=== PATIENT | male | born 1975 | race Caucasian/White ===

== ENCOUNTER 2021-02-28 01:51 | Inpatient (IN) | payer SELFPAY ==
[~2021-02-28] VITALS: Ht 182.9 cm; Wt 150.6 kg
[2021-02-28 02:05] LABS: Calcium, Ionized (POC) 1.05 mmol/L (1.10-1.46); Chloride (POC) 98 mmol/L (98-108); Creatinine (POC) 2.9 mg/dL (0.8-1.3); Glucose (ISTAT POC) 179 mg/dL (70-99); Hemoglobin (POC) 9.9 g/dL (13.5-17.5); Potassium (POC) 4.2 mmol/L (3.5-5.5); Sodium (POC) 134 mmol/L (135-148); Total CO2 (POC) 15 mmol/L (21-32)
[2021-02-28 02:11] LABS: PCO2 Arterial 38.3 mmHg (35-45); PO2 Arterial 44.4 mmHg (80-100); pH Blood Arterial 7.01 (7.35-7.45)
[2021-02-28 02:30] LABS: BASOPHILS ABSOLUTE AUTO 0.04 K/mm3 (0.00-0.23); BASOPHILS PERCENT AUTO 0 % (0-2); Hemoglobin 9.8 g/dL (13.5-17.5); Mean Corpuscular HGB 30.3 pg (26.0-34.0); Mean Corpuscular HGB Conc 31.6 g/dL (31.5-36.5); Mean Corpuscular Volume 96 fL (80-100); Mean Platelet Volume 11.7 fL (9.1-12.4); NRBC Auto 0.6 /100 WBC (0.0-0.2); Platelet Count 154 K/mm3 (150-400); RDW Standard Deviation 59.8 fL (35.1-46.3); Red Blood Cell Count 3.23 M/mm3 (4.30-5.90); White Blood Cell Count 15.45 K/mm3 (4.00-11.30)
[2021-02-28 02:32] LABS: EOSINOPHILS ABSOLUTE AUTO 0.01 K/mm3 (0.00-0.68); EOSINOPHILS PERCENT AUTO 0 % (0-6); IMMATURE GRAN ABSOLUTE AUTO 0.87 K/mm3 (0.00-0.10); IMMATURE GRAN PERCENT AUTO 6 % (0-1); LYMPHOCYTES ABSOLUTE AUTO 2.24 K/mm3 (0.84-5.20); LYMPHOCYTES PERCENT AUTO 15 % (21-46); MONOCYTES ABSOLUTE AUTO 0.18 K/mm3 (0.16-1.47); MONOCYTES PERCENT AUTO 1 % (4-13); NEUTROPHILS ABSOLUTE AUTO 12.11 K/mm3 (1.96-9.15); NEUTROPHILS PERCENT AUTO 78 % (41-73)
[2021-02-28 02:56] LABS: Bilirubin, Total 0.7 mg/dL (0.1-1.0); Bun/Creatinine Ratio 10.4 (12.0-20.0); Creatinine, Blood 2.5 mg/dL (0.60-1.20); Magnesium, Blood 2.6 mg/dL (1.6-2.4)
[2021-02-28 03:02] LABS: Troponin I 8.23 ng/mL (0.000-0.040)
[2021-02-28 03:04] LABS: BAND PERCENT MAN 19 % (0-8); BASOPHILS PERCENT MAN 0 % (0-2); EOSINOPHILS PERCENT MAN 0 % (0-6); LYMPHOCYTES ABSOLUTE MAN 1.85 K/mm3 (0.84-5.20); LYMPHOCYTES PERCENT MAN 12 % (21-46); METAMYELOCYTE ABSOLUTE MAN 0.77 K/mm3 (0.00-0.00); METAMYELOCYTE PERCENT MAN 5 % (0-0); MONOCYTES ABSOLUTE MAN 0.15 K/mm3 (0.16-1.47); MONOCYTES PERCENT MAN 1 % (4-13); MYELOCYTE ABSOLUTE MAN 0.15 K/mm3 (0.00-0.00); MYELOCYTE PERCENT MAN 1 % (0-0); NEUTROPHILS ABSOLUTE MAN 12.36 K/mm3 (1.96-9.15); PROMYELOCYTE ABSOLUTE MAN 0.15 K/mm3 (0.00-0.00); PROMYELOCYTE PERCENT MAN 1 % (0-0); SEG NEUTROPHILS PERCENT MAN 61 % (41-73); TOTAL CELLS COUNTED 100
[2021-02-28 03:59] LABS: PCO2 Arterial 51.9 mmHg (35-45); pH Blood Arterial 7.12 (7.35-7.45)
[2021-02-28 04:00] LABS: PO2 Arterial 47.4 mmHg (80-100)
[2021-02-28 04:00] LABS: Calcium, Ionized (POC) 1.03 mmol/L (1.10-1.46); Chloride (POC) 101 mmol/L (98-108); Creatinine (POC) 2.5 mg/dL (0.8-1.3); Glucose (ISTAT POC) 131 mg/dL (70-99); Hemoglobin (POC) 9.5 g/dL (13.5-17.5); Potassium (POC) 4.8 mmol/L (3.5-5.5); Sodium (POC) 132 mmol/L (135-148); Total CO2 (POC) 18 mmol/L (21-32)
[2021-02-28 05:20] LABS: PCO2 Arterial 53.9 mmHg (35-45)
[2021-02-28 05:22] LABS: PO2 Arterial 32.3 mmHg (80-100); pH Blood Arterial 7.08 (7.35-7.45)
[2021-02-28 06:33] LABS: International Normalized Ratio 1.06; Prothrombin Time Results 11.4 Sec (9.7-11.5)
--- NOTE | 2021-02-28 08:14 | NUR ---
Echocardiogram completed.
[2021-02-28 10:10] LABS: PCO2 Arterial 39.3 mmHg (35-45); PO2 Arterial 50.2 mmHg (80-100); pH Blood Arterial 7.24 (7.35-7.45)
[2021-02-28 10:36] LABS: Hematocrit 25.2 % (37.0-53.0); Hemoglobin 8.7 g/dL (13.5-17.5); Mean Corpuscular HGB Conc 34.5 g/dL (31.5-36.5); Mean Platelet Volume 10.7 fL (9.1-12.4); NRBC ABSOLUTE 0.13 K/mm3 (0.00-0.02); NRBC Auto 0.8 /100 WBC (0.0-0.2); Platelet Count 185 K/mm3 (150-400); RDW Coefficient Variation 16.4 % (11.7-14.2); RDW Standard Deviation 54.7 fL (35.1-46.3); Red Blood Cell Count 2.81 M/mm3 (4.30-5.90); White Blood Cell Count 16.11 K/mm3 (4.00-11.30)
[2021-02-28 10:37] LABS: Mean Corpuscular Volume 90 fL (80-100)
[2021-02-28 10:58] LABS: Bun/Creatinine Ratio 12.7 (12.0-20.0); Calcium, Blood 6.8 mg/dL (8.5-10.1); Creatine Kinase MB 228.8 ng/mL (0.0-3.6); Creatinine, Blood 2.13 mg/dL (0.60-1.20); Potassium, Blood 3.2 mmol/L (3.5-5.5)
[2021-02-28 11:05] LABS: BAND PERCENT MAN 18 % (0-8); BASOPHILS PERCENT MAN 0 % (0-2); EOSINOPHILS PERCENT MAN 0 % (0-6); LYMPHOCYTES ABSOLUTE MAN 2.09 K/mm3 (0.84-5.20); LYMPHOCYTES PERCENT MAN 13 % (21-46); METAMYELOCYTE ABSOLUTE MAN 0.48 K/mm3 (0.00-0.00); METAMYELOCYTE PERCENT MAN 3 % (0-0); MONOCYTES PERCENT MAN 0 % (4-13); MYELOCYTE ABSOLUTE MAN 0.16 K/mm3 (0.00-0.00); MYELOCYTE PERCENT MAN 1 % (0-0); NEUTROPHILS ABSOLUTE MAN 13.37 K/mm3 (1.96-9.15); SEG NEUTROPHILS PERCENT MAN 65 % (41-73); TOTAL CELLS COUNTED 100
[2021-02-28 11:06] LABS: Creatine Kinase MB Index 6.6 (0.0-4.0)
[2021-02-28 11:30] LABS: International Normalized Ratio 1.06; Prothrombin Time Results 11.4 Sec (9.7-11.5)
[2021-02-28 11:54] LABS: PCO2 Arterial 32.9 mmHg (35-45); PO2 Arterial 46.3 mmHg (80-100); pH Blood Arterial 7.24 (7.35-7.45)
--- NOTE | 2021-02-28 11:57 | NUR ---
Admission/Transfer to : Patient arrived to room at approx 0815hr, accompanied by ED nurse and RT Corby. Vent to Bilevel ventilation on 100% FiO2, spO2 in the 70's. Levophed gtt at 10mcg/min, Vasopressin at 0.04u/min and Epi gtt placed on stand-by before transport to ICU, Propofol gtt at 15mcg/kg/min, Heparin gtt at 15u/kg/hr, verified with 2nd RN via EMAR. NIBP show systolics in the 130's. Dr. Shahid to room shortly after patient transferred to ICU bed. Instructed by Dr. Shahid to prone patient. Patient placed in prone position with help from Dr. Shahid, RT, and x3 RN's. Patient place prone without difficulty and continued to tolerate vent, but spO2 quickly decreased to the 50's-60's. Dr. Shahid then instructed staff to place patient back to supine position. Patient then placed back to supine position without difficulty, spO2 improved to 70's, but will not increase above 78% (Dr. Shahid aware). Dr. Shahid then placed arterial line to rt axilla. Arterial line zero'd at bedside, adequate waveform on monitor, systolic's 115-130's. Instructed by Dr. Shahid to turn Epi gtt back on at 5mc/gmin and titrate levophed off before coming down on Epi gtt. Dr. De León then to room to see patient (cardiology). Received order for repeat 12lead EKG, which showed concern for anterior-lateral infarct. STEMI team activated. 324 ASA and 180mg of Brilinta given via OG tube per Dr. De León. PTT results received before transfer to , showing greater than 130. Heparin gtt stopped at 1120hr, and pharmacist Salvador notified of PTT value and that patient was transferring to . Epi gtt remains at 5mcg/min, Levophed gtt titrated down to 3mcg/min. Critical ABG results shown to Dr. Shahid. Transferred to without difficulty at 1130hr.
--- NOTE | 2021-02-28 12:13 | NUR ---
Family: equal employment opportunity officer Chaya contacted family shortly after patient's arrival and again when Dr. De León gave plan to take patient to HC. Patient's parents both able to come to bedside before transferr HC. All questions anxwerred to their satisfaction. Family escorted to HC waiting room.
[2021-02-28 13:30] LABS: PCO2 Arterial 36.4 mmHg (35-45); PO2 Arterial 56.7 mmHg (80-100); pH Blood Arterial 7.22 (7.35-7.45)
[2021-02-28 13:59] LABS: Hematocrit 22.6 % (37.0-53.0); Hemoglobin 8.1 g/dL (13.5-17.5); Mean Corpuscular HGB 31.9 pg (26.0-34.0); Mean Corpuscular HGB Conc 35.8 g/dL (31.5-36.5); Mean Corpuscular Volume 89 fL (80-100); Mean Platelet Volume 10.5 fL (9.1-12.4); NRBC ABSOLUTE 0.14 K/mm3 (0.00-0.02); NRBC Auto 0.9 /100 WBC (0.0-0.2); Platelet Count 176 K/mm3 (150-400); RDW Coefficient Variation 16.3 % (11.7-14.2); RDW Standard Deviation 53.7 fL (35.1-46.3); Red Blood Cell Count 2.54 M/mm3 (4.30-5.90); White Blood Cell Count 15.36 K/mm3 (4.00-11.30)
--- NOTE | 2021-02-28 14:20 | NUR ---
Return from HC: Patient returned from HC at approx 1330hr, accompanied by RT and HC staff. Patient returned with no change to vasopressors, Levophed gtt at 3mcg/min, Epi gtt at 5mcg/min. BP stable with systolic BP's in low 100's, MAPs 60's-70s. Propofol gtt increased from 20-30mcg/kg/min shortly after arrival to HC by this RN, and returned to unit at same rate. Patient appears sedated and comfortable. Spoke with Dr. Shahid, instructed no need to decrease sedation at this time. Continues on Vent at Bilevel setting with 100% FiO2, spO2 now 83-85%. Returned on Agrostat 12.5mg in 250ml gtt, at 11.2ml/hr. Agrostat dose renal adjusted by pharmacy and rate now at 11.6ml/hr. Received instructions per Dr. De León to continue Agrostat gtt until 250ml bag is finished, then return to Heparin gtt per pharmacy consult. Venous and arterial sheaths in place to rt groin upon return from HC. Rt groin site stable, no s/s of bleeding or hematoma. Pressure bag infusing through arterial sheath, Agrostat gtt infusing through venous sheath. Patient's family brought to bedside upon return from HC, all questions answered to their satisfaction. Will continue to monitor.
[2021-02-28 14:34] LABS: Bun/Creatinine Ratio 12.1 (12.0-20.0); Calcium, Blood 6.4 mg/dL (8.5-10.1); Creatinine, Blood 2.14 mg/dL (0.60-1.20)
[2021-02-28 15:13] LABS: BAND PERCENT MAN 18 % (0-8); BASOPHILS PERCENT MAN 0 % (0-2); EOSINOPHILS PERCENT MAN 0 % (0-6); LYMPHOCYTES ABSOLUTE MAN 2.76 K/mm3 (0.84-5.20); LYMPHOCYTES PERCENT MAN 18 % (21-46); METAMYELOCYTE PERCENT MAN 2 % (0-0); MONOCYTES PERCENT MAN 0 % (4-13); NEUTROPHILS ABSOLUTE MAN 12.28 K/mm3 (1.96-9.15); SEG NEUTROPHILS PERCENT MAN 62 % (41-73); TOTAL CELLS COUNTED 100
[2021-02-28 15:14] LABS: Creatine Kinase MB 270.8 ng/mL (0.0-3.6); Creatine Kinase MB Index 6.5 (0.0-4.0)
[2021-02-28 15:30] LABS: PCO2 Arterial 36.5 mmHg (35-45); PO2 Arterial 51.2 mmHg (80-100); pH Blood Arterial 7.21 (7.35-7.45)
[2021-02-28 16:37] LABS: PCO2 Arterial 44.2 mmHg (35-45); PO2 Arterial 52.4 mmHg (80-100)
[2021-02-28 16:38] LABS: pH Blood Arterial 7.18 (7.35-7.45)
[2021-02-28 18:23] LABS: SARS-Cov-2 (COVID-19) PCR, MMC POSITIVE (NEGATIVE)
[2021-02-28 18:36] LABS: PCO2 Arterial 37.1 mmHg (35-45); PO2 Arterial 67.3 mmHg (80-100)
[2021-02-28 18:37] LABS: pH Blood Arterial 7.27 (7.35-7.45)
--- NOTE | 2021-02-28 19:26 | NUR ---
Shift Summary: See previous notes r/t transfer to cathode maker and admission to ICU. ABG's continued to worsen in pH and PO2. SpO2 also remained in mid 80's. Consulted with Dr. Shahid and received order to start Nimbex gtt. Unable to monitor BIS r/t lack of supplies but patient appeared well sedated on 30mcg/kg/min of propofol. Nimbex gtt started at 2mcg/kg/min. Unable to obtain baseline TOF, but nimbex effective to decrease respiratory rate from low 30's to back-up rate of 28. SpO2 remained in the mid 80's, occasional decreasing to high 70's. Then discussed plan with Dr. Shahid an RT Prasanth. Prasanth received instructions to trial different modes of ventilation in order to increase SpO2. RT Prasanth then adjusted vent settings. Vent remains at BiLevel mode but I/E pressures decreased and inspiratory time increased. These changes effective to increase patient's spO2, 93-95% for remainder of shift. Repeat ABG also showed improvement. Also received orders for repeat lactic and chem panel per Dr. Shahid. All lines remain patent and intact, infusing without difficulty. Alatorre cath patent and intact, draining dark yellow urine, 2L output this shift. OG put to low suction, moderate amount of coffee ground emesis noted, Dr. Shahid made aware, no new orders received. Report given to NOC shift RN.
--- NOTE | 2021-02-28 21:28 | NUR ---
PATIENT INTUBATED AND SEDATED WITH PROPOFOL 40 MCG AND NIMBEX AT 2 MCG FOR VENT TOLERANCE. ETT IN PLACE WITH VENT SET BILEVEL RESP 28, 30/18 WITH PS 15 FIO2 100% LUNG SOUNDS COARSE T/O NOT ABLE TO SUCTION SECRETIONS VIA ETT. BLOODY NOSE PACKED WITH TISSUE. OG TO SUCTION WITH DARK COFFEE GROUND LOOKING EMESIS, CLAMPED AT THIS TIME FOR MEDICATIONS. ART LINE TO RIGHT AXILLA WITH GOOD WAVEFORM, EPINEPHERINE DRIP 5 MCG CONTINUES FOR HYPOTENSION. AGGRASTAT CONTINUES PER DOCTOR MADONNA, PLAN TO START HEPARIN DRIP WHEN THIS BAG IS COMPLETE. LASIX DRIP STARTED TO KEEP URINE OUTPUT GREATER THAN 150 CC/HR. POTASSIUM RIDER INFUSING. TIFFANY AND ARTERIAL SHEATH REMAIN IN PLACE TO RIGHT GROIN WITH PRESSURE BAG TO ARTERIAL SHEATH AND AGGRASTAT TO TIFFANY SHEATH.
[2021-02-28 22:10] LABS: PCO2 Arterial 32.7 mmHg (35-45); PO2 Arterial 91.7 mmHg (80-100); pH Blood Arterial 7.32 (7.35-7.45)
[2021-02-28 23:01] LABS: Albumin, Blood 2.7 g/dL (3.4-5.0); Anion Gap 15 mmol/L (6-16); Blood Urea Nitrogen 24 mg/dL (8-24); Bun/Creatinine Ratio 10.7 (12.0-20.0); CO2, Blood 19 mmol/L (21-32); CPK Creatine Kinase 4771 U/L (39-308); Calcium, Blood 5.9 mg/dL (8.5-10.1); Chloride, Blood 94 mmol/L (98-108); Creatinine, Blood 2.25 mg/dL (0.60-1.20); Glomerular Filtration Rate 32 (60-); Glucose, Blood 363 mg/dL (70-99); Phosphorus, Blood 1.6 mg/dL (2.5-4.9); Sodium, Blood 128 mmol/L (136-145); Troponin I >200.000 ng/mL (0.000-0.040)
--- NOTE | 2021-02-28 23:13 | NUR ---
DOCTOR SCOTT NOTIFIED OF REPEAT LABS, KEEP VENT SETTINGS THEY ARE. RESTART LEVOPHED, KEEP EPI 3-4 MCG, CONTINUE LASIX DRIP. KPHOS AND CALCIUM IV ORDERED
[2021-03-01 02:07] LABS: PCO2 Arterial 30.1 mmHg (35-45); PO2 Arterial 73.3 mmHg (80-100); pH Blood Arterial 7.42 (7.35-7.45)
[2021-03-01 05:13] LABS: PCO2 Arterial 28.5 mmHg (35-45)
--- NOTE | 2021-03-01 06:23 | NUR ---
SUMMARY PATIENT REMAINS INTUBATED AND SEDATED. PROPOFOL 40 MCG FOR SEDATION AND NIMBEX 2MCG TO HELP PATIENT QUINTIN VENT. VENT SET BILEVEL 30/18 PS 15 FIO2 90% SEE ABG'S ART LINE TO RIGHT AXILLA WITH GOOD WAVEFORM DRAWING LABS VIA SAFESET. CENTRAL LINE TO LEFT GROIN AND ARTERIAL AND VENOUS SHEATHS TO RIGHT GROIN WITH AGGRASTAT INFUSING TO TIFFANY SHEATH. LEVOPHED 5 MCG AND EPI 3 MCG FOR HYPOTENSION. BICARB DRIP CONTINUES AT 75 CC/HR. LASIX DRIP 5 MG/HR WITH GOOD URINE OUT SEE I&O. OG REMAINS IN PLACE WITH DARK COFFEE GROUNDS LOOKING BILE, CLAMPED 45 MIN AFTER MEDS.
[2021-03-01 06:24] LABS: Hemoglobin 6.3 g/dL (13.5-17.5); Mean Corpuscular HGB Conc 37.1 g/dL (31.5-36.5); NRBC ABSOLUTE 0.23 K/mm3 (0.00-0.02); NRBC Auto 2.4 /100 WBC (0.0-0.2); RDW Coefficient Variation 15.2 % (11.7-14.2); RDW Standard Deviation 46.5 fL (35.1-46.3); Red Blood Cell Count 2.03 M/mm3 (4.30-5.90); White Blood Cell Count 9.41 K/mm3 (4.00-11.30)
[2021-03-01 06:31] LABS: Magnesium, Blood 1.8 mg/dL (1.6-2.4)
[2021-03-01 06:33] LABS: Albumin, Blood 2.7 g/dL (3.4-5.0); Bilirubin, Total 0.6 mg/dL (0.1-1.0); Bun/Creatinine Ratio 11.7 (12.0-20.0); Calcium, Blood 6.4 mg/dL (8.5-10.1); Creatinine, Blood 2.3 mg/dL (0.60-1.20); Phosphorus, Blood 2.7 mg/dL (2.5-4.9); Potassium, Blood 3.2 mmol/L (3.5-5.5)
[2021-03-01 06:38] LABS: Mean Corpuscular Volume 84 fL (80-100); Mean Platelet Volume 10.5 fL (9.1-12.4); Platelet Count 168 K/mm3 (150-400)
[2021-03-01 06:52] LABS: Albumin/Globulin Ratio 0.9 (0.8-1.8); Total Protein, Blood 5.7 g/dL (6.4-8.2)
[2021-03-01 07:40] LABS: BAND PERCENT MAN 19 % (0-8); BASOPHILS PERCENT MAN 0 % (0-2); EOSINOPHILS PERCENT MAN 0 % (0-6); LYMPHOCYTES ABSOLUTE MAN 0.94 K/mm3 (0.84-5.20); LYMPHOCYTES PERCENT MAN 10 % (21-46); METAMYELOCYTE ABSOLUTE MAN 0.18 K/mm3 (0.00-0.00); METAMYELOCYTE PERCENT MAN 2 % (0-0); MONOCYTES ABSOLUTE MAN 0.28 K/mm3 (0.16-1.47); MONOCYTES PERCENT MAN 3 % (4-13); NEUTROPHILS ABSOLUTE MAN 7.99 K/mm3 (1.96-9.15); SEG NEUTROPHILS PERCENT MAN 66 % (41-73); TOTAL CELLS COUNTED 100
[2021-03-01 07:41] LABS: Creatine Kinase MB 312.9 ng/mL (0.0-3.6)
--- NOTE | 2021-03-01 08:45 | NUR ---
ASSUMED CARE REPORT FROM ASHLEIGH [facility]. PT INTUBATED, SEDATED AND PARALYZED. VENT SETTINGS WINSTON/PC 28/30/18/PS15/70%. LUNGS CLEAR. NO SECRETIONS THROUGH ETT AT THIS TIME. NIMBEX GTT, TO4 0/4, PT COMPLIANT c VENT, NO COUGH/GAG/SWALLOW REFLEX. WILL TITRATE NIMBEX DOWN. PROPOFOL GTT, BIS MONITOR SET UP, 30-40'S, WILL TITRATE PROPOFOL DOWN. PUPILS 4 MM, REACTIVE. PT PALE, COOL. CAP REFILL > 4 SEC. PULSES BY DOPPLER. SR, RATE 90'S, ST ELEVATION. LEVO GTT AND EPI GTT INFUSING. PER DR CHAVEZ NOTE, WILL CONTINUE EPI AT 3 MCG/MIN. LEVO TITRATED FOR MAP>65. ART LINE TO RIGHT AXILLA, ZERO'D AND FLUSHED. DRESSING C/D/I. CVC TO LEFT GROIN, INFUSING, DRESSING C/D/I. ARTERIAL AND VENOUS SHEATH TO RIGHT GROIN, ART SHEATH c PRESSURE BAG IN PLACE. AGGRASTAT INFUSING THROUGH VENOUS SHEATH AT SHIFT CHANGE, INFUSION COMPLETE. CHANGED TO HEPARIN 13 UNITS/KG/HR. VERIFIED c PHARMACY THAT COAGS DID NOT NEED TO BE DRAWN PRIOR TO STARTING HEPARIN. OGT TO LIS AT SHIFT CHANGE, MAROON EMESIS OUT, CLAMPED AND MEDS GIVEN. ABD ROUND, SOFT, HYPOACTIVE BT. COREA PATENT, DRAINING CLEAR YELLOW URINE TO GRAVITY. LASIX GTT FOR OU>150ML/HR, WILL TITRATE DOWN. 1 UNIT PRBCS STARTED. BICARB AT 75 ML/HR. 1+ EDEMA TO BLE. WILL CONTINUE TO MONITOR.
--- NOTE | 2021-03-01 12:40 | NUR ---
SEDATION/PARALYTIC VACATION PROPOFOL AND NIMBEX PLACED ON STANDBY. AFTER 7 MINUTES, PT COUGHING, ASYNCHRONOUS c VENT, O2 SATS DECREASED TO 83%. PT NOT FOLLOWING COMMANDS. RESTARTED NIMBEX AND PROPOFOL.
[2021-03-01 13:57] LABS: Hematocrit 21.4 % (37.0-53.0); Hemoglobin 8.9 g/dL (13.5-17.5)
--- NOTE | 2021-03-01 16:29 | NUR ---
SHEATH PULL/HEPARIN ADJUSTMENT VENOUS AND ARTERIAL SHEATH PULLED. WHEN PT WAS SUPINE, O2 SATS DECREASED TO 60'S, HR AND BP INCREASED. DIFFICULTIES ACHIEVING HEMOSTASIS, CONTINUED TO HOLD PRESSURE. PROOFING MACHINE OPERATOR STAFF AND DR PEACOCK NOTIFIED AND AT BEDSIDE. PRESSURE HELD FOR 25 MINUTES. GROIN SOFT, NO HEMATOMA PALPABLE. PETROLEUM c OPSITE PLACED. WILL CONTINUE TO MONITOR CLOSELY. PHARMACY CALLED c HEPARIN RATE INCREASE TO 15 UNITS/KG/HR AND 5000 UNIT BOLUS. DISCUSSED c KATERINA PHARMACIST AND RYAN. RATE INCREASED TO 15, BOLUS HELD. WILL RECHECK PTT PRIOR TO PREVIOUSLY SCHEDULED.
--- NOTE | 2021-03-01 17:09 | NUR ---
SHIFT SUMMARY PT REMAINS INTUBATED AND SEDATED. VENT SETTINGS BILEVEL 28/18/15/70%. LUNGS COARSE, DIM IN BASES. SCANT SECRETIONS THROUGH ETT. PT PARALYZED AND SEDATED. SEE SEDATION VACATION NOTE, PROPOFOL GTT 25 MCG/KG/MIN, BIS 30-40'S. NIMBEX 2 MCG/KG/MIN, TO4 0/4, ALTHOUGH TITRATED UP D/T PT MOVEMENT AND NON COMPLIANCE c VENT. ART LINE TO RIGHT AXILLA. LEVO GTT FOR MAP>65, EPI GTT D/C'D. PT CONTINUES TO BE PALE, COOL. DELAYED CAP REFILL. TRANSFUSED 2 UNITS PRBCS THIS SHIFT. LASIX GTT D/C'D. COREA PATENT, DRAINING CLEAR YELLOW URINE TO GRAVITY. ARTERIAL AND VENOUS SHEATH REMOVED, SEE NOTE. SITE CURRENTLY SOFT, NO BRUISING OR HEMATOMA NOTED. 350 ML OF MAROON EMESIS OUT THIS SHIFT, TUBE FEEDS STARTED AT 25 ML/HR c 30 ML FLUSH q4 HR. FAMILY UPDATED. WILL CONTINUE TO MONITOR UNTIL REPORT TO ONCOMING NURSE.
--- NOTE | 2021-03-01 20:45 | NUR ---
PATIENT REMAINS INTUBATED AND SEDATED WITH PROPOFOL 25 MCG, NIMBEX 2 MCG TO HELP PATIENT QUINTIN VENT. BIS 40'S UP TO 50'S WITH SLIGHT STIMULI. UNABLE TO OBTAIN TRAIN OF 4. VENT BILEVEL RESP 28 28/18 PEEP 15 FIO2 70% SUCTIONING SCANT AMT OF BLOOD TINGED CLEAR SPUTUM. ART LINE TO RIGHT AXILLA ZEROED, GOOD WAVEFORM BP VERY LABILE, INCREASING WITH SLIGHT STIMULI. LEVOPHED 12 MCG. HEPARIN 15 UNITS PER PHARMACY. RIGHT GROIN SHEATH SITE WITH DRESSING CD&I AND AREA AROUND SITE SOFT. OG IN PLACE WITH TUBE FEEDING VITAL HP AT 25 CC/HR.
--- NOTE | 2021-03-01 23:42 | NUR ---
DURING PATIENTS BED BATH AROUND 2100 BIOX DOWN TO LOW 80'S WHILE POSITIONED HIGH ON LEFT SIDE TO WASH BACK, MIN SECRETIONS WITH SUCTIONING, SLOWLY RECOVERING BACK TO FIO2 70%. RIGHT GROIN SITE REMAINS STABLE. OG IN PLACE WITH 350 CC OF DARK, APPEARS OLD BLOOD, DISCARDED AND TUBE FEEDING RESTARTED AT 25 CC/HR.
--- NOTE | 2021-03-02 00:44 | NUR ---
PATIENT HAVING SLIGHT NOSE BLEED FROM RIGHT NARE. PATIENT HAD 400 CC RESIDUAL FROM OG OF DARK BRICK RED BILE, DISCARDED AND STAT H&H DRAWN. WILL WAIT TO INCREASE HEPARIN DRIP UNTIL SPEAKING WITH DOCTOR FRANCHESKA
[2021-03-02 00:46] LABS: Hematocrit 19.6 % (37.0-53.0)
--- NOTE | 2021-03-02 01:28 | NUR ---
DOCTOR FRANCHESKA NOTIFIED OF OG OUTPUT AND H&H RESULTS. CONTINUE HEPARIN DRIP PER PHARMACY, CONTINUE ASA AND BRILINTA PER ORDER.
[2021-03-02 04:01] LABS: pH Blood Arterial 7.52 (7.35-7.45)
[2021-03-02 04:17] LABS: Hematocrit 18.5 % (37.0-53.0); Mean Corpuscular Volume 85 fL (80-100); Mean Platelet Volume 10.9 fL (9.1-12.4); NRBC ABSOLUTE 0.83 K/mm3 (0.00-0.02); NRBC Auto 4.8 /100 WBC (0.0-0.2); Platelet Count 226 K/mm3 (150-400); RDW Coefficient Variation 15.3 % (11.7-14.2); RDW Standard Deviation 47.8 fL (35.1-46.3); Red Blood Cell Count 2.17 M/mm3 (4.30-5.90); White Blood Cell Count 17.42 K/mm3 (4.00-11.30)
[2021-03-02 04:36] LABS: Albumin, Blood 2.4 g/dL (3.4-5.0); Albumin/Globulin Ratio 0.9 (0.8-1.8); Bun/Creatinine Ratio 14.3 (12.0-20.0); Calcium, Blood 6.4 mg/dL (8.5-10.1); Creatinine, Blood 1.89 mg/dL (0.60-1.20); Globulin, Blood 2.6 g/dL (2.2-4.0); Magnesium, Blood 1.6 mg/dL (1.6-2.4); Phosphorus, Blood 1.7 mg/dL (2.5-4.9); Potassium, Blood 3.7 mmol/L (3.5-5.5)
[2021-03-02 04:46] LABS: Mean Corpuscular HGB 30.4 pg (26.0-34.0); Mean Corpuscular HGB Conc 35.7 g/dL (31.5-36.5)
[2021-03-02 05:49] LABS: BAND PERCENT MAN 21 % (0-8); BASOPHILS PERCENT MAN 0 % (0-2); EOSINOPHILS PERCENT MAN 0 % (0-6); LYMPHOCYTES ABSOLUTE MAN 1.04 K/mm3 (0.84-5.20); LYMPHOCYTES PERCENT MAN 6 % (21-46); METAMYELOCYTE ABSOLUTE MAN 0.34 K/mm3 (0.00-0.00); METAMYELOCYTE PERCENT MAN 2 % (0-0); MONOCYTES ABSOLUTE MAN 0.34 K/mm3 (0.16-1.47); MONOCYTES PERCENT MAN 2 % (4-13); MYELOCYTE ABSOLUTE MAN 0.52 K/mm3 (0.00-0.00); MYELOCYTE PERCENT MAN 3 % (0-0); NEUTROPHILS ABSOLUTE MAN 15.15 K/mm3 (1.96-9.15); SEG NEUTROPHILS PERCENT MAN 66 % (41-73); TOTAL CELLS COUNTED 100
[2021-03-02 06:22] LABS: Hemoglobin 6.6 g/dL (13.5-17.5)
--- NOTE | 2021-03-02 06:30 | NUR ---
SUMMARY PATIENT REMAINS INTUBATED AND SEDATED WITH VENT BILEVEL RESP 28 28/18 PS 15 FIO2 60% VERY MIN SECRETIONS VIA ETT. PROPOFOL 30MCG WITH BIS 30-40'S NIMBEX 2MCG CONTINUES TO ASSIST WITH VENT COMPLIANCE. ART LINE TO RIGHT AXILLA WITH GOOD WAVEFORM LEVOPHED 15 MCG INFUSING. OG REMAINING CLAMPED AT THIS TIME DUE TO DARK RED BILE REMOVED AT 0000. SLIGHT NOSE BLEED DURING THE NIGHT.
--- NOTE | 2021-03-02 08:19 | NUR ---
INITIAL ASSESSMENT PATIENT INTUBATED, SEDATED AND PARALYZED. PATIENT UNRESPONSIVE. BILAT EPISTAXIS NOTED THIS AM. TRAIN OF FOUR 0/4. BIZ 40S TO 50S. PATIENT AFEBRILE. NO SIGNS OF PAIN NOTED. LUNGS DIMINISHED THROUGHOUT. PATIENT ON VENT SETTINGS OF BILEVEL 28/18, PEEP 15 AND 60% FIO2. NO SPUTUM NOTED WITH SUCTIONING THIS AM. RR IN THE 20S. PATIENT IN ST, HR IN THE LOW 100S. SBP 80S TO 130S. LEVOPHED INFUSING. ALL PULSES DOPPLERED. 1+ EDEMA NOTED TO BLES. ABDOMEN MODERATELY DISTENDED, SOFT, WITH HYPERACTIVE BOWEL SOUNDS NOTED. TF ON HOLD. OG CLAMPED. DRAINAGE FROM TF HAS BLOOD LIKE APPEARANCE. DATE OF LAST BM UNKNOWN. COREA DRAINING KAREEN COLORED URINE. R FEM WELDING MACHINE OPERATOR ELECTRON BEAM ACCESS SITE WNL- NO BLEEDING, BRUISING, OR HEMATOMA NOTED. RASH TO CHINO AREA/ GROIN FOLDS. SKIN PALE, COOL AND DIAPHORETIC. LEVOPHED INFUSING AT 12 MCG/ MINUTE, PROPOFOL AT 30 MCG/ KG/ MINUTE, LR AT 75 MLS/ HOUR, NIMBEX AT 2 MCG/ KG/ MINUTE. HEPARIN DRIP DC'D BY GUTTER INSTALLER THIS AM. BED LOW. WILL CONTINUE TO MONITOR PATIENT FREQUENTLY THROUGHOUT SHIFT.
--- NOTE | 2021-03-02 11:33 | NUR ---
DR. PRITCHARD AND DR. PEACOCK UPDATED ON PATIENT STATUS.
--- NOTE | 2021-03-02 12:53 | NUR ---
PATIENT AFEBRILE. PATIENT REMAINS INTUBATED AND ON SEDATED. NIMBEX PLACED ON SB. PATIENT IN SR TO ST, HR 90S TO LOW 100S. SBP 80S TO 140S. SBP BOUNCES AROUND. LEVOPHED CURRENTLY AT 10 MCG/ MINUTE. FIO2 INCREASED TO 95% TO KEEP SATS 90% AND GREATER AFTER REPOSITIONING AND NURSING CARE. RECTAL TUBE INSERTED THIS AM. BLOOD SUGAR 169. EPISTAXIS CONTINUES.
--- NOTE | 2021-03-02 14:02 | NUR ---
PATIENT DESATTED INTO 60S AFTER NIMBEX STOPPED. RT TO ROOM AND INCREASED FIO2 TO 100%. DR. PRITCHARD CALLED AND TO BEDSIDE. PATIENT O2 INCREASED TO 70%. ASSESSING PATIENT NOW.
[2021-03-02 14:20] LABS: PCO2 Arterial 41.6 mmHg (35-45); pH Blood Arterial 7.35 (7.35-7.45)
[2021-03-02 14:21] LABS: PO2 Arterial 47.6 mmHg (80-100)
[2021-03-02 15:13] LABS: Hemoglobin 6.5 g/dL (13.5-17.5)
--- NOTE | 2021-03-02 15:31 | NUR ---
Spiritual care visit conducted. Patient is lying in bed and mother, Nan and father, Shashank are bedside. Nan is quite tearful and tells me about the events that have happened in the last week or so up to what they were dealing with currently. They talks about their strong Hinduism wilbur and Marcia choice to be more neutral toward denominational practices. 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 I provide therapeutic listening, a calming presence and prayer. Shashank and Nan respond well and show signs of being encouraged in their wilbur. I will continue to remain available to patient and fmaily.
--- NOTE | 2021-03-02 16:40 | NUR ---
PATIENT AFEBRILE. HR IN THE LOW 100S. SBP 90S TO 130S. PATIENT ON PC 25, PEEP 20, 100% FIO2. NIMBEX ON SHORT BREAK BUT PATIENT DID NOT TOLERATE SO IS BACK ON AT SAME RATE. PROTONIX NOW INFUSING AT 10 MLS/ HOUR. BACK END ARCHITECT ACCESS SITE ON R FEM REMAINS UNCHANGED. PATIENT'S MOTHER AND FATHER WERE HERE TO VISIT PATIENT. PRIMARY NURSE AND DR. PRITCHARD BOTH UPDATED FAMILY.
--- NOTE | 2021-03-02 18:41 | NUR ---
03/02/21 1841 DANY EDOUARD LATE ENTRY 172 History, Chart, Medications and Allergies reviewed before start of procedure. 3-LEAD EKG REVIEWED WITH PHYSICIAN PRIOR TO START OF PROCEDURE. MONITOR INTACT WITH CONTINUOUS PULSE OXIMETRY AND INTERMITTENT BP. PT VENTILATED. SEDATION MANAGED BY REPRINT SORTER.
--- NOTE | 2021-03-02 19:20 | NUR ---
SHIFT SUMMARY PATIENT REMAINED SEDATED, INTUBATED AND PARALZYED. NIMBEX PLACED ON SB FOR SHORT TIME, HOWEVER PLACED BACK ON BECAUSE DESATTED DOWN TO THE 60S. PATIENT REMAINED AFEBRILE. PATIENT'S NOSE CONTINUED TO BLEED ALL OF SHIFT. BIZ SHOWED 20S TO 50S, HOWEVER INFORMED DR. PRITCHARD THAT BIZ MONITORING SHOWED 20, HOWEVER WHEN NIMBEX PLACED ON SB, PATIENT STARTED TO MOVE EXTREMITIES AND OPEN ONE EYE. LUNGS REMAINED DIM. PATIENT ON BILEVEL VENT SUPPORT OR ON PC SUPPORT THIS SHIFT. PATIENT INCREASED TO 100% FIO2 BY END OF SHIFT TO KEEP SATS 90% AND GREATER. PATIENT REMAINED SR TO ST, HR 90S TO LOW 100S. SBP 70S TO 140S. ALL PULSES REMAIN DOPPLER. LEVOPHED DECREASED FROM 15 TO 10 MCG/ MINUTE BY END OF SHIFT, HOWEVER PATIENT DID RECEIVE SEVERAL FLUID BOLUSES, IN ADDITION TO 3 UNITS PRBCS. ABDOMEN HAS BECOME MORE DISTENDED. 1200 MLS OF DARK RED BLOOD SUCTIONED OUT FROM GI TRACT DURING SCOPE. DR. STEARNS FOUND LARGE ULCER WITH CLOT AND CALLED FAMILY IN THERE "IS NOTHING TO BE DONE TO FIX THE BLEED". PATIENT HAD ONE LARGE LOOSE, LIQUID BM THIS AM. RECTAL TUBE PLACED. NO FURTHER BLEEDING FROM RECTUM NOTED. OG REMOVED DURING SCOPE. NO ORDER TO REPLACE AT THIS TIME. COREA DRAINED ADEQUATE AMOUNT OF KAREEN COLORED URINE WITH SEDIMENT NOTED. NO CHANGES TO SKIN. PROTONIX STARTED AT 10 MLS/ HOUR. PROPOFOL AT 50 MCG/ KG/ MINUTE. LR AT 75 MLS/ HOUR. NIMBEX AT 2 MCG/ KG/ MINUTE. HEPARIN DC'D THIS AM. 30 MM SODIUM PHOS GIVEN TODAY FOR PHOS OF 1.7. REMDESIVIR STARTED TODAY. NEW SPUTUM CULTURE SENT TO LAB. BLOOD SUGAR OF 169. MOTHER AND FATHER IN ROOM AT THIS TIME. NIGHT RN, ASHLEIGH, INTRODUCED TO FAMILY.
--- NOTE | 2021-03-02 19:30 | NUR ---
PATIENT REMAINS INTUBATED AND SEDATED PATIENTS MOTHER DORI, AND FATHER RAE AT BEDSIDE. PROPOFOL 50 MCG WITH BIS 40-50 NIMBEX 2 MCG TO ASSIST WITH VENTILATION, TRAIN OF 4 0/4. VENT SET PS 13 PEEP 25 RATE 25 FIO2 100% NOSE BLEED WITH DARK RED DRAINAGE. SUCTIONING BRIGHT RED WITH ORAL SUCTION. LEVOPHED 15 MCG FOR HYPOTENSION, ART LINE TO RIGHT AXILLA WITH GOOD WAVEFORM. SETTING UP FOR 2 MORE UNITS OF PRBC'S. PROTONIX DRIP INFUSING. OG IS OUT, ABD FIRM AND DISTENDED. RECTAL TUBE IN PLACE WITH SMALL AMT OF BLACK STOOL IN TUBING.
--- NOTE | 2021-03-02 20:40 | NUR ---
DOCTOR DARYN NOTIFIED OF FIRM ABD AND BRIGHT RED BLOOD SUCTIONED FROM MOUTH, OK RECEIVED TO REPLACE OG. OG PLACED WITH DOCTOR TARIQ AT BEDSIDE. WITH AIR THAN MAROON LIQUID DRAINING. PATIENTS PARENTS DORI AND RAE HOME FOR THE NIGHT.
[2021-03-03 01:49] LABS: Hematocrit 24.8 % (37.0-53.0); Hemoglobin 10.7 g/dL (13.5-17.5)
[2021-03-03 04:11] LABS: PO2 Arterial 194 mmHg (80-100); pH Blood Arterial 7.47 (7.35-7.45)
[2021-03-03 04:28] LABS: BASOPHILS ABSOLUTE AUTO 0.08 K/mm3 (0.00-0.23); BASOPHILS PERCENT AUTO 1 % (0-2); Hematocrit 24.1 % (37.0-53.0); Mean Corpuscular Volume 82 fL (80-100); Mean Platelet Volume 10.7 fL (9.1-12.4); NRBC ABSOLUTE 2.11 K/mm3 (0.00-0.02); NRBC Auto 12.3 /100 WBC (0.0-0.2); Platelet Count 172 K/mm3 (150-400); RDW Coefficient Variation 15.8 % (11.7-14.2); RDW Standard Deviation 46.7 fL (35.1-46.3); Red Blood Cell Count 2.93 M/mm3 (4.30-5.90)
[2021-03-03 04:58] LABS: EOSINOPHILS ABSOLUTE AUTO 0.04 K/mm3 (0.00-0.68); EOSINOPHILS PERCENT AUTO 0 % (0-6); IMMATURE GRAN ABSOLUTE AUTO 1.96 K/mm3 (0.00-0.10); IMMATURE GRAN PERCENT AUTO 11 % (0-1); LYMPHOCYTES ABSOLUTE AUTO 1.71 K/mm3 (0.84-5.20); LYMPHOCYTES PERCENT AUTO 10 % (21-46); MONOCYTES ABSOLUTE AUTO 0.98 K/mm3 (0.16-1.47); MONOCYTES PERCENT AUTO 6 % (4-13); NEUTROPHILS ABSOLUTE AUTO 12.43 K/mm3 (1.96-9.15); NEUTROPHILS PERCENT AUTO 72 % (41-73)
[2021-03-03 05:12] LABS: Hemoglobin 8.7 g/dL (13.5-17.5)
[2021-03-03 05:13] LABS: Mean Corpuscular HGB 29.7 pg (26.0-34.0); Mean Corpuscular HGB Conc 36.1 g/dL (31.5-36.5)
[2021-03-03 05:16] LABS: BAND PERCENT MAN 5 % (0-8); BASOPHILS PERCENT MAN 0 % (0-2); EOSINOPHILS PERCENT MAN 0 % (0-6); LYMPHOCYTES ABSOLUTE MAN 2.23 K/mm3 (0.84-5.20); LYMPHOCYTES PERCENT MAN 13 % (21-46); METAMYELOCYTE PERCENT MAN 7 % (0-0); MONOCYTES ABSOLUTE MAN 0.51 K/mm3 (0.16-1.47); MONOCYTES PERCENT MAN 3 % (4-13); MYELOCYTE ABSOLUTE MAN 0.17 K/mm3 (0.00-0.00); MYELOCYTE PERCENT MAN 1 % (0-0); NEUTROPHILS ABSOLUTE MAN 13.07 K/mm3 (1.96-9.15); SEG NEUTROPHILS PERCENT MAN 71 % (41-73); TOTAL CELLS COUNTED 100
[2021-03-03 05:59] LABS: Bun/Creatinine Ratio 19.6 (12.0-20.0); Creatinine, Blood 1.48 mg/dL (0.60-1.20); Phosphorus, Blood 1.9 mg/dL (2.5-4.9)
[2021-03-03 06:08] LABS: Albumin/Globulin Ratio 0.7 (0.8-1.8); Bilirubin, Total 0.7 mg/dL (0.1-1.0); Calcium, Blood 5.7 mg/dL (8.5-10.1); Globulin, Blood 2.8 g/dL (2.2-4.0); Magnesium, Blood 1.3 mg/dL (1.6-2.4); Potassium, Blood 4.9 mmol/L (3.5-5.5); Total Protein, Blood 4.8 g/dL (6.4-8.2)
--- NOTE | 2021-03-03 06:12 | NUR ---
SUMMARY PATIENT REMAINS INTUBATED AND SEDATED WITH PROPOFOL 50 MCG AND NIMBEX TITRATED TO 3 MCG DUE TO SLIGHT COUGH AND MOVEMENT OF HEAD. ETT IN PLACE WITH VENT SET AT PS 13 PEEP 25 FIO2 70% NO SECRETIONS WITH SUCTIONING. NOSE BLEED WITH DARK RED BLOOD OFF AND ON T/O NIGHT. OCCASIONAL BLOODY ORAL SECRETIONS. OG REMAINS IN PLACE TO LIS WITH 600 CC DARK MAROON DRAINAGE. RECTAL TUBE REMAINS IN PLACE WITH SMALL AMT OF LIQUID BLACK STOOL CONTAINED IN TUBING. PATIENT HAD ONE EPISODE OF BEING COLD AND DIAPHORETIC SELF RESOLVING. GENERALIZED AND SCLERAL EDEMA STARTING.
--- NOTE | 2021-03-03 09:09 | NUR ---
ASSUMED CARE OF PT, REPORT RCV'D FROM ALON SOTELO. PT INTUBATED, VENT SETTINGS PS 13/25, 70% WITH SATS>90%. HEAD OF BED FLAT AND PT IN REVERSE TRENDELENBERG POSITIONING TO PROTECT LINES AND IMPROVE OXYGENATION. PT PARALYZED, 1-2/4 WITH TRAIN OF 4 (EYEBROW). PROPOFOL DECREASED TO 40 MCG/KG/MIN D/T LOW READING ON BIS MONITOR (17), BIS READING INCREASED TO 27-32. NIMBEX @ 3 MCG/KG/MIN6. OGT TO LIS, MODERATE AMOUNT OF MAROON BLOOD NOTED IN TUBE AND SUCTION CANNISTER. SMALL AMOUNT OF MAROON BLOOD FROM ETT. ABDOMEN DISTENDED AND FIRM, BOWEL TONES X4. SKIN DIAPHORETIC AND COOL. 6 MM PUPILS WITH BRISK REACTION TO LIGHT. LEVOPHED @ 13 MCG/MIN TO MAINTAIN MAP>65. RIGHT AXILLARY ART LINE PATENT, LEFT FEMORAL CL PATENT, RIGHT FEMORAL ACCESS POINT WITH CLEAR DRESSING-SOFT, NO EVIDENCE OF BLEEDING. SEE FULL SHIFT ASSESSMENT.
--- NOTE | 2021-03-03 15:34 | NUR ---
LEVOPHED OFF SINCE NOON, PT CONTINUES TO MAINTAIN MAP>65. NIMBEX TURNED OFF @1500. PT OPENS EYES, TURNS HEAD TOWARD SOUND, MOVES ALL EXTREMETIES AND SQUEEZES HAND ON COMMAND. PEEP TURNED DOWN FROM 25 TO 17, FIO2 @70% WITH SATS 92%. PT'S FATHER AT BEDSIDE, UPDATED WITH PT'S STATUS. PT CONTINUES TO HAVE BLOODY OUTPUT FROM OGT AND INTERMITTENT BLOODY NOSES.
[2021-03-03 16:25] LABS: Hematocrit 20.5 % (37.0-53.0)
--- NOTE | 2021-03-03 18:01 | NUR ---
SHIFT SUMMARY PT REMAINS INTUBATED, VENT SETTINGS PC /, 45% WITH SATS 92-93%. NIMBEX AND LEVOPHED REMAIN ON STANDBY. MAP REMAINS GREATER THAN 65 EXCEPT FOLLOWING ADMINISTRATION OF ATIVAN WHEN PT'S PRESSURE DROPPED SLIGHTLY BUT RECOVERED. PROPOFOL @55-65 MCG/KG/MIN. PT ABLE TO OPEN EYES TO VERBAL STIMULATION, TRACK MOVEMENT, MOVE ALL EXTREMETIES WELL AND INTERMITTENTLY SQUEEZE HANDS WHEN ASKED. PT OCCASIONALLY DIAPHORETIC, REMAINS AFEBRILE. NSR WITH HR 80-90'S. OGT TO LIS, [address] STEARNS AT BEDSIDE THIS EVENING, PLAN TO SCOPE TOMORROW, PT'S HGB STABLE AT THIS TIME, WILL RECHECK IN AM. PTS MOTHER AND FATHER AT BEDSIDE, UPDATED AND WITH PLAN TO SCOPE TOMORROW. WILL REPORT TO ONCOMING NURSE.
--- NOTE | 2021-03-03 21:19 | NUR ---
ASSUMED CARE AT 1900 PT LAYING IN BED INTUBATED WITH VENT SETTINGS PS 13/17, FIO2 70%; SCANT AMOUNT OF THIN RED SECREATIONS NOTED FROM ETT. SPONTANIOUS MOVEMENT OF HEAD AND ALL EXTREMITIES; DID NOT FOLLOW DIRECTIONS OR OPEN EYES BUT FENTANYL GIVEN JUST BEFORE; GAG AND COUGH PRESENT; PROPOFOL INFUSING AT 65MCG/KG/MIN; PRN FENTANYL GIVEN ONCE FOR CPOT 3 AND HELPFUL. AFEBRILE. HR 90-100. ART LINE IN PLACE TO RT AXILLARY, SBP 90-110, MAP >65. OG TO LIS, DARK RED OUTPUT NOTED; PLACED ON HOLD FOR 30MIN FOR OG MEDS AND THAN RESTARTED. RECTAL TUBE AND COREA IN PLACE AND DRAINING TO GRAVITY. TEGADERM TO RT GROIN IN PLACE, NO SIGNS OF BLEEDING OR HEMATOMA. CENTRAL LINE TO LT GROIN PATENT WITH DRESSING C/D/I. PROTONIX AND LR INFUSING. SEE SHIFT ASSESSMENT FOR FULL ASSESSMENT.
[2021-03-04 05:00] LABS: Hematocrit 20.7 % (37.0-53.0); Mean Corpuscular Volume 84 fL (80-100); NRBC ABSOLUTE 0.72 K/mm3 (0.00-0.02); Platelet Count 122 K/mm3 (150-400); RDW Coefficient Variation 15.9 % (11.7-14.2); RDW Standard Deviation 48.1 fL (35.1-46.3); Red Blood Cell Count 2.47 M/mm3 (4.30-5.90); White Blood Cell Count 12.01 K/mm3 (4.00-11.30)
[2021-03-04 05:11] LABS: Albumin, Blood 2.2 g/dL (3.4-5.0); Albumin/Globulin Ratio 0.8 (0.8-1.8); Bilirubin, Total 0.9 mg/dL (0.1-1.0); Bun/Creatinine Ratio 16.4 (12.0-20.0); Calcium, Blood 6.4 mg/dL (8.5-10.1); Creatinine, Blood 1.59 mg/dL (0.60-1.20); Globulin, Blood 2.7 g/dL (2.2-4.0); Phosphorus, Blood 2.4 mg/dL (2.5-4.9); Potassium, Blood 3.9 mmol/L (3.5-5.5); Total Protein, Blood 4.9 g/dL (6.4-8.2)
[2021-03-04 05:45] LABS: Magnesium, Blood 1.1 mg/dL (1.6-2.4)
[2021-03-04 06:26] LABS: BAND PERCENT MAN 24 % (0-8); BASOPHILS PERCENT MAN 0 % (0-2); EOSINOPHILS PERCENT MAN 0 % (0-6); LYMPHOCYTES ABSOLUTE MAN 0.72 K/mm3 (0.84-5.20); LYMPHOCYTES PERCENT MAN 6 % (21-46); METAMYELOCYTE ABSOLUTE MAN 0.36 K/mm3 (0.00-0.00); METAMYELOCYTE PERCENT MAN 3 % (0-0); MONOCYTES ABSOLUTE MAN 0.12 K/mm3 (0.16-1.47); MONOCYTES PERCENT MAN 1 % (4-13); MYELOCYTE ABSOLUTE MAN 0.36 K/mm3 (0.00-0.00); MYELOCYTE PERCENT MAN 3 % (0-0); NEUTROPHILS ABSOLUTE MAN 10.44 K/mm3 (1.96-9.15); SEG NEUTROPHILS PERCENT MAN 63 % (41-73); TOTAL CELLS COUNTED 100
--- NOTE | 2021-03-04 06:49 | NUR ---
END OF SHIFT SUMMARY NO ACUTE EVENTS OVER NIGHT. PT CONT TO BE INTUBATED WITH VENT SETTINGS PS 13/17, FIO2 55%; SCANT AMOUNT OF ETT SECREATIONS. PT MORE ALERT SHIFT CONT; PT FOLLOWING DIRECTIONS, PULLING AT RESTRAINTS, AND COBB; PROPOFOL INFUSING AT 55MCG/KG/MIN; PRN FENTANYL AVAILABLE, GIVEN, AND HELPFUL. MAX TEMP 100.1. HR 90-105, SBP 80-90; MAP >60. OG DRAINED DARK RED OUTPUT; 400ML OUT. COREA PATENT AND DRAINING TO GRAVITY. CRITICAL MAG OF 1.1 THIS AM; HAIR OR BEAUTY SALON MANAGER NOTIFIED; ELECTROLYTE PROTOCOL IN PLACE AND IN USE. PROTONIX INFUSING; LR INFUSING. CENTRAL LINE TO LT GROIN C/D/I; RT AXILLARY ART LINE PATENT C/D/I. REPORT GIVEN TO DENIS Marshall
[2021-03-04 09:10] LABS: Hematocrit 19.8 % (37.0-53.0)
--- NOTE | 2021-03-04 09:42 | NUR ---
ASSUMED CARE OF PT, REPORT RCV'D FROM ALON MULTANI. PT INTUBATED AND SEDATED. PT OPENS EYES TO VERBAL STIMULATION, TRACKS MOVEMENT, REACHES FOR ETT, FOLLOWS COMMANDS TO SQUEEZE HANDS. VENT SETTINGS 25/17, 70% WITH SATS 92-93%. PT SEDATED WITH PROPOFOL 65 MCG/KG/MIN WITH PRN ATIVAN AND FENTANYL. DARK MAROON OUTPUT FROM OGT, CONTINUES TO BE HOOKED TO LIS. RECTAL TUBE PATENT AND DRAINING SMALL AMOUNT OF DARK BROWN/BLACK WATERY STOOL. PT'S FATHER AT BEDSIDE THIS MORNING, UPDATED WITH PLAN TO SCOPE TODAY. SEE FULL SHIFT ASSESSMENT.
[2021-03-04 10:47] LABS: Amylase, Blood 49 U/L (25-115)
[2021-03-04 11:17] LABS: Cholesterol 189 mg/dL (50-200)
[2021-03-04 11:32] LABS: Triglycerides 2635 mg/dL (30-160)
--- NOTE | 2021-03-04 13:48 | NUR ---
DR. STEARNS AT BEDSIDE TO PERFORM SCOPE
--- NOTE | 2021-03-04 14:02 | NUR ---
03/04/21 1402 DANY EDOUARD History, Chart, Medications and Allergies reviewed before start of procedure. 3-LEAD EKG REVIEWED WITH PHYSICIAN PRIOR TO START OF PROCEDURE. MONITOR INTACT WITH CONTINUOUS PULSE OXIMETRY AND INTERMITTENT BP. PT VENTILATED. REPAIR DEPARTMENT SUPERVISOR MANAGED SEDATION.
--- NOTE | 2021-03-04 18:27 | NUR ---
SHIFT SUMMARY PT REMAINS INTUBATED AND SEDATED. PT AROUSES TO VERBAL STIMULATION AND ABLE TO FOLLOW SIMPLE COMMANDS. VENT SETTINGS PC 25/17, 60% WITH SATS 88-92%. PROPOFOL @ 40 MCG/KG/MIN AND ATIVAN GTT @ 2MG/HR. PT SIT, BP WNL. 250 ML BLOOD FROM OGT, OGT REMOVED DURING EGT WITH ORDER TO REPLACE WITH DOBHOFF FOR MEDICATION ADMINISTRATION. WILL D/C ORDER PER DR. PRITCHARD REQUEST WHEN ABLE. RECTAL TUBE HAD MINIMAL DARK BROWN WATERY STOOL. 1200 ML GREEN URINARY OUTPUT. PT AFEBRILE AND VSS T/O SHIFT. PT'S PARENTS AT BEDSIDE THIS AFTERNOON, UPDATED WITH SCOPE FINDINGS AND PT PROGRESS/PLAN OF CARE. SEE PREVIOUS NOTES FROM THIS SHIFT. WILL REPORT TO ONCOMING NURSE.
--- NOTE | 2021-03-04 22:23 | NUR ---
ASSUMED PT CARE FROM ALON BARRIOS AT 1915 PT INTUBATED AND SEDATED. PROPOFOL AT 40MCG/KG/MIN. ATIVAN AT 2MG/HR. VENT SETTINGS: AC/PC 25, PI 17, PEEP 17, FIO2 60%, SPO2 >90%, RR 25. CENTRAL LINE TO LEFT GROIN WITH LR INFUSING AT 75MLS/HR AND PROTONIX AT 10MLS/HR. ATTEMPTED TO DECREASE PROPOFOL TO 30MCG/KG/MIN TO ASSESS NEURO STATUS, WHICH PT WAS ABLE TO WITHDRAWAL FROM NOXIOUS STIMULI AND FURROW BROW; HOWEVER, UNABLE TO OPEN EYES OR FOLLOW ANY COMMANDS. PT DIDN'T TOLERATE THE DECREASE IN PROPOFOL WITH A RESP RATE THAT INCREASED TO THE 40'S AND LOW TIDAL VOLUMES. THEREFORE, INCREASED PROPOFOL AND MEDICATED WITH FENTANYL ADJUNCTIVELY PER ORDERS. PLACED DOBHOFF PER DR. STEARNS ORDERS IN ORDER TO ADMINISTER MEDICATIONS WITH NO DIFFICULTY DURING INSERTION. XRAY TO CONFIRM PLACEMENT AND DR. PRITCHARD VERIFIED AND GAVE THE VERBAL OKAY TO USE. DR. PRITCHARD ALSO WANTED TO DISCONTINUE PROPOFOL D/T ELEVATED TRIGLYCERIDE LEVELS AND START A FENTANYL GTT INSTEAD. CURRENTLY FENTANYL GTT IS AT 50MCG/HR AND PROPOFOL IS OFF. PT APPEARS TO BE TOLERATING WELL WITH RESP RATE MAINTAINING AT 25 WITH VENT. AFTER PT'S BATH ART LINE WAS NOTED TO BE DAMPENED; THEREFORE, OBTAINED VERBAL ORDERS TO DISCONTINUE ART LINE PER DR. PRITCHARD. MANUAL PRESSURE HELD X15 MINUTES TO RIGHT AXILLA WITH NO HEMATOMA NOTED. SITE REMAINS SOFT, NON-TENDER, WITH NO OOZING NOTED. TEGADERM IN PLACE. SEE SHIFT ASSESSMENT FOR FURTHER DETAILS.
[2021-03-05 04:35] LABS: Mean Corpuscular Volume 88 fL (80-100); Mean Platelet Volume 11.7 fL (9.1-12.4); NRBC ABSOLUTE 0.37 K/mm3 (0.00-0.02); NRBC Auto 3.6 /100 WBC (0.0-0.2); Platelet Count 98 K/mm3 (150-400); RDW Standard Deviation 50.8 fL (35.1-46.3); Red Blood Cell Count 2.02 M/mm3 (4.30-5.90); White Blood Cell Count 10.24 K/mm3 (4.00-11.30)
--- NOTE | 2021-03-05 05:03 | NUR ---
END OF SHIFT SUMMARY NO SIGNIFICANT CHANGES T/O NIGHT. FENTANYL GTT REMAINS AT 50MCG/HR, ATIVAN AT 2MG/HR. VENT SETTINGS: AC/PC 25, PI 17, PEEP 17, FIO2 85%, SPO2 >90%. RR 25. PT ABLE TO OPEN EYES SPONTANEOUSLY, PURPOSEFUL MOVEMENT TOWARD ETT, WITHDRAWALS FROM NOXIOUS STIMULI, AND FOLLOWS COMMANDS. CENTRAL LINE TO LEFT GROIN REMAINS INFUSING LR AT 75MLS/HR AND PROTONIX AT 10MLS/HR. DOBHOFF REMAINS CLAMPED. NO FURTHER STOOL NOTED THIS SHIFT. COREA REMAINS PATENT AND DRAINING CLEAR, BUT DARK KAREEN COLORED URINE. PT HAS BEEN NSR TO SINUS TACHYCARDIA WITH UPPER RATE <110. BP'S SOFT, BUT STABLE; SEE FLOWSHEET. WILL CONTINUE TO MONITOR UNTIL REPORT IS HANDED OFF TO ONCOMING RN.
[2021-03-05 05:13] LABS: PCO2 Arterial 37.2 mmHg (35-45); PO2 Arterial 83.2 mmHg (80-100); pH Blood Arterial 7.46 (7.35-7.45)
[2021-03-05 05:20] LABS: Albumin/Globulin Ratio 0.7 (0.8-1.8); Bilirubin, Total 0.8 mg/dL (0.1-1.0); Bun/Creatinine Ratio 16.7 (12.0-20.0); Calcium, Blood 7.1 mg/dL (8.5-10.1); Creatinine, Blood 1.62 mg/dL (0.60-1.20); Globulin, Blood 2.9 g/dL (2.2-4.0); Phosphorus, Blood 3.6 mg/dL (2.5-4.9); Potassium, Blood 3.8 mmol/L (3.5-5.5); Total Protein, Blood 4.9 g/dL (6.4-8.2)
[2021-03-05 05:47] LABS: Mean Corpuscular HGB 28.7 pg (26.0-34.0)
[2021-03-05 05:48] LABS: Mean Corpuscular HGB Conc 32.8 g/dL (31.5-36.5)
[2021-03-05 05:51] LABS: Hemoglobin 5.8 g/dL (13.5-17.5)
[2021-03-05 05:52] LABS: Hematocrit 17.7 % (37.0-53.0)
--- NOTE | 2021-03-05 06:49 | NUR ---
UPDATE GIVEN TO SISTER, LINNEA CHAUDHRYRI INFORMED OF PT'S CURRENT OXYGENATION REQUIREMENTS, WELL PT'S LOW HEMOGLOBIN LEVELS WITH THE PLAN TO TRANSFUSE TWO UNITS OF BLOOD. SISTER IS VERY UNDERSTANDING AND GRATEFUL OF CARES.
[2021-03-05 07:17] LABS: BAND PERCENT MAN 15 % (0-8); BASOPHILS PERCENT MAN 0 % (0-2); EOSINOPHILS PERCENT MAN 0 % (0-6); LYMPHOCYTES PERCENT MAN 4 % (21-46); METAMYELOCYTE PERCENT MAN 1 % (0-0); MONOCYTES PERCENT MAN 1 % (4-13); MYELOCYTE PERCENT MAN 2 % (0-0); NEUTROPHILS ABSOLUTE MAN 9.42 K/mm3 (1.96-9.15); SEG NEUTROPHILS PERCENT MAN 77 % (41-73); TOTAL CELLS COUNTED 100
--- NOTE | 2021-03-05 08:48 | NUR ---
ASSUMED CARE OF PT, REPORT RCV'D FROM ALON HALEY. PT INTUBATED AND SEDATED. VENT SETTING RATE 25, PEEP 17, FIO2 75% WITH SATS 94% LUNG SOUNDS DIM T/O WITH MODERATE AMOUNT OF BLOOD TINGED THICK PHAN SECRETIONS. PT REMAINS ALERT TO VERBAL STIMULI, TRACKS MOVEMENT AND FOLLOWS SIMPLE COMMANDS. PT SEDATED WITH FENTANYL GTT 50 MCG/HR AND ATIVAN 2 MG/HR. PT HYPOTENSIVE THIS AM, ORDER TO INFUSE 2 U PRBC'S FOR HGB 5.8. NO OUTWARD SIGNS OF ACTIVE BLEEDING AT THIS TIME. ABDOMEN DISTENDED BUT REMAINS SOFT, NO FACIAL GRIMACING WITH PALPATION. DOBHOFF IN PLACE FOR MEDICATION ADMINISTRATION, WILL FLUSH PRN. RECTAL TUBE REMOVED OVERNIGHT. LEFT FEMORAL CL PATENT AND FLUSHING WELL WITH GOOD BLOOD RETURN. PT SIT. WORSENING EDEMA TO BLE. 2-3+ NON PITTING. SEE FULL SHIFT ASSESSMENT
[2021-03-05 13:10] LABS: Hematocrit 18.8 % (37.0-53.0)
[2021-03-05 13:16] LABS: Hemoglobin 6.5 g/dL (13.5-17.5)
--- NOTE | 2021-03-05 18:31 | NUR ---
SHIFT SUMMARY PT REMAINS INTUBATED AND SEDATED. VENT SETTINGS UNCHANGED SINCE START OF SHIFT. PT SEDATED WITH FENTANYL GTT 50 MCG/HR, ATIVAN GTT DISCONTINUED AND PRECEDEX GTT STARTED AT 0.7 MCG/KG/HR. PT COMFORTABLY SEDATED, EASILY AROUSABLE AND ABLE TO FOLLOW COMMANDS. PT CT FOR CTA, RESULTS IN CHART. INTERVENTIONAL RADIOLOGIST DR. HORN CONSULTED AND PT TAKEN TO PERMIT AGENT @1730 AND REMAINS THERE. PT RECEIVED 3 UNITS PRBC THIS SHIFT. ORDER TO RECHECK H/H WHEN PT RETURNS FROM PERMIT AGENT. LEVOPHED STARTED AT 2 MCG/MIN AT DR. CABRERA REQUEST FOR PROCEDURE. DOBHOFF REMAINS IN PLACE, FLUSHED NEEDED. ORDER TO START TRICKLE FEEDS AND SCHEDULED REGLAN. DIETARY TO CONSULT ON MONDAY TO INCREASE TUBE FEEDS TOLERATED. PICC LINE INSERTED INTO MARTINE. LEFT FEMORAL CL REMAIN IN PLACE. PT'S FATHER AND MOTHER AT BEDSIDE TODAY, MET WITH DR. CABRERA THIS MORNING. DR. HORN CALLED FAMILY THIS EVENING REGARDING PROCEDURE AND TO UPDATE ON PT'S STATUS. WILL REPORT TO ONCOMING NURSE.
[2021-03-05 20:31] LABS: Hemoglobin 6.2 g/dL (13.5-17.5)
--- NOTE | 2021-03-05 20:42 | NUR ---
ASSUMED PT CARE FROM ALON BARRIOS AT 1900 PT IN ALTERNATIVE FINANCING SPECIALIST AT TIME OF CARE ASSUMED FOR COIL PLACEMENT TO LEFT GASTRIC ARTERY. PT ARRIVED ON UNIT AT 1930. RIGHT GROIN ACCESSED WITH ANGIOSEAL DEVICE PLACED IN ALTERNATIVE FINANCING SPECIALIST AT 1910. PT IS TO REMAIN SUPINE X2 HOURS. SITE IS SOFT, NON-TENDER WITH SLIGHT OOZING NOTED TO DRESSING, BUT UNCHANGED SINCE ARRIVAL TO UNIT. NO HEMATOMA NOTED. VENT SETTINGS REMAIN AC/PC 25, PI 17, PEEP 17, FIO2 90% WITH SPO2 91%. RR 25. CENTRAL LINE TO LEFT GROIN WITH PRECEDEX AT 0.7 MCG/KG/HR, WHICH WAS RECENTLY DECREASED TO 0.5MCG/KG/HR. FENTANYL AT 50MCG/HR. PICC TO LEFT UPPER ARM THAT IS SALINE LOCKED AT THIS TIME. PT DIFFICULT TO AROUSE, BUT STILL ABLE TO OPEN EYES TO VERBAL AND NOXIOUS STIMULI, MOVES ALL EXTREMITIES WITH PURPOSEFUL MOVEMENT TO BUE TOWARD ETT. PT ABLE TO FOLLOW SIMPLE COMMANDS. LEVOPHED AT 2MCG/MIN WITH SBP 90-100. RAMANDEEP STAT H&H ONCE PT ARRIVED ON UNIT. STARTED TRICKLE TUBE FEEDING WITH VITAL HIGH PROTEIN AT 10ML/HR VIA DOBHOFF. ABDOMEN REMAINS SEVERLY DISTENDED AND FIRM WITH ABSENT BT AT THIS TIME. NO BOWEL MOVEMENT. COREA REMAINS PATENT AND DRAINING DARK, KAREEN COLORED URINE TO GRAVITY. SEE SHIFT SUMMARY FOR FURTHER DETAILS
[2021-03-06 01:46] LABS: Hematocrit 23.7 % (37.0-53.0)
[2021-03-06 04:25] LABS: Hematocrit 23.3 % (37.0-53.0); Hemoglobin 8.5 g/dL (13.5-17.5); Mean Corpuscular HGB 30.7 pg (26.0-34.0); Mean Corpuscular HGB Conc 36.5 g/dL (31.5-36.5); Mean Corpuscular Volume 84 fL (80-100); Mean Platelet Volume 11.7 fL (9.1-12.4); NRBC ABSOLUTE 0.28 K/mm3 (0.00-0.02); NRBC Auto 2.3 /100 WBC (0.0-0.2); Platelet Count 91 K/mm3 (150-400); RDW Coefficient Variation 17.2 % (11.7-14.2); RDW Standard Deviation 52.6 fL (35.1-46.3); Red Blood Cell Count 2.77 M/mm3 (4.30-5.90); White Blood Cell Count 11.94 K/mm3 (4.00-11.30)
[2021-03-06 05:14] LABS: Albumin, Blood 1.7 g/dL (3.4-5.0); Albumin/Globulin Ratio 0.5 (0.8-1.8); Bilirubin, Total 0.9 mg/dL (0.1-1.0); Bun/Creatinine Ratio 18.7 (12.0-20.0); Calcium, Blood 6.6 mg/dL (8.5-10.1); Creatinine, Blood 1.66 mg/dL (0.60-1.20); Globulin, Blood 3.4 g/dL (2.2-4.0); Potassium, Blood 3.8 mmol/L (3.5-5.5); Total Protein, Blood 5.1 g/dL (6.4-8.2)
--- NOTE | 2021-03-06 06:08 | NUR ---
END OF SHIFT SUMMARY NO SIGNIFICANT CHANGES NOTED THIS SHIFT. VENT SETTINGS REMAIN UNCHANGED WITH AC/PC 25, PI 17, PEEP 17, FIO2 90% WITH SPO2 >90%. RR 25. PRECEDEX BACK AT 0.7 MCG/KG/HR. FENTANYL GTT AT 50MCG/HR. PT ABLE TO OPEN EYES AND WITHDRAWAL FROM NOXIOUS STIMULI. VERY RESISTANT TO FOLLOWING COMMANDS. GRIMACES AND FURROWS BROW TO ORAL CARES. MOVES ALL EXTREMITIES; PURPOSEFUL MOVEMENTS TOWARD ETT WITH BUE'S. PT HAS REMAINED IN BILATERAL SOFT WRIST RESTRAINTS. ABDOMEN REMAINS DISTENDED, AND FIRM WITH NO BM THIS SHIFT. PT HAS RECEIVED ONE UNIT OF PRBC'S THIS SHIFT D/T HGB 6.2 WITH THE FOLLOWING HGB POST TRANSFUSION OF 8.0. PT REMAINS ON LEVOPHED AT 2MCG/MIN WITH SBP 90-100'S. PT HAS REMAINED NSR WITH HR 70'S. COREA REMAINS PATENT AND DRAINING DARK, KAREEN COLORED URINE TO GRAVITY. RIGHT GROIN SITE REMAINS STABLE THIS SHIFT WITH UNCHANGED BLOOD UNDER DRESSING WITH SURROUNDING TISSUE SOFT, NON-TENDER WITHOUT HEMATOMA. CENTRAL LINE TO LEFT GROIN REMAINS PATENT AND THIS TIME, AND PICC TO LEFT UPPER ARM IS SALINE LOCKED. PT HAS FAN IN PLACE AND COLD CLOTH ON FOREHEAD D/T PT BEING VERY DIAPHORETIC THIS AM. WILL CONTINUE TO MONITOR UNTIL REPORT IS HANDED OFF TO ONCOMING RN.
[2021-03-06 06:30] LABS: BAND PERCENT MAN 21 % (0-8); BASOPHILS PERCENT MAN 0 % (0-2); EOSINOPHILS PERCENT MAN 0 % (0-6); LYMPHOCYTES ABSOLUTE MAN 0.23 K/mm3 (0.84-5.20); LYMPHOCYTES PERCENT MAN 2 % (21-46); METAMYELOCYTE ABSOLUTE MAN 0.23 K/mm3 (0.00-0.00); METAMYELOCYTE PERCENT MAN 2 % (0-0); MONOCYTES ABSOLUTE MAN 0.23 K/mm3 (0.16-1.47); MONOCYTES PERCENT MAN 2 % (4-13); MYELOCYTE ABSOLUTE MAN 0.35 K/mm3 (0.00-0.00); MYELOCYTE PERCENT MAN 3 % (0-0); NEUTROPHILS ABSOLUTE MAN 10.86 K/mm3 (1.96-9.15); SEG NEUTROPHILS PERCENT MAN 70 % (41-73); TOTAL CELLS COUNTED 100
--- NOTE | 2021-03-06 08:30 | NUR ---
INITIAL ASSESSMENT PATIENT INTUBATED AND SEDATED. PATIENT UNRESPONSIVE THIS AM. PRECEDEX DECREASED FROM 0.7 TO 0.6 MCG/ KG/ HOUR AND PATIENT BECAME AGITATED AND DESATTED INTO 80S. PRECEDEX INCREASED BACK TO 0.7 MCG/ KG/ HOUR AND GIVEN PRN FENTANYL. NO SIGNS OF PAIN NOTED AT THIS TIME. RRS REMAIN INCREASED AND O2 SATS IN HIGH 80S. GROSS MOVEMENT NOTED TO ALL EXTREMITIES. PATIENT DID REACH FOR ETT WITH L HAND. PUPILS REACT BRISKLY; REMAIN FIXED. PATIENT AFEBRILE. PATIENT ON PC 25, PI 17, PEEP 17, 90% FIO2. LUNGS DIMINISHED THROUGHOUT. SCANT AMOUNT OF THICK, PINK/ PHAN SPUTUM NOTED WITH ETT SUCTIONING. RR 20S TO 30S THIS AM. PATIENT IN SR, HR IN THE 70S. SBP IN THE 90S. LEVOPHED AT 2 MCG/ MINUTE. PULSES FAINT. SCDS IN PLACE. ANASARCA NOTED. ABDOMEN MODERATELY DISTENDED, SOFT, WITH HYPOACTIVE BS NOTED. PATIENT HAD SMALL BM ON METAL ROASTER. VHP AT TRICKLE. 30 ML WATER FLUSHES Q4H. COREA DRAINING KAREEN COLORED URINE. FISSURE NOTED TO COCCYX. R FEM COMMODITY MANAGEMENT SPECIALIST SITE REMAINS WNL; NO BLEEDING, BRUISING, OR HEMATOMA NOTED. GROIN AND ABD FOLDS REDDENED. SKIN PALE, COOL, AND DRY. NS TKO. FENTANYL DRIP AT 50 MCG/ HOUR. PROTONIX DRIP AT 10 MLS/ HOUR. BED LOW, CALL LIGHT IN REACH. WILL CONTINUE TO MONITOR PATIENT FREQUENTLY THROUGHOUT SHIFT.
--- NOTE | 2021-03-06 09:00 | NUR ---
DR. CABRERA UPDATED ON PATIENT STATUS. INFORMED THAT PATIENT ON LEVOPHED AT 2 MCG/ MINUTE. INFORMED THAT ASA DC'D BY SET STAFF FITTER TO HELP GASTRIC ULCER HEAL. INFORMED THAT CENTRAL LINE STILL PRESENT DESPITE PICC LINE BEING PLACED YESTERDAY. INFORMED OF PLATELETS OF 91. INFORMED THAT HEMOGLOBIN STABLE AT 8.5. INFORMED THAT IONIZED CALCIUM 1.0, SODIUM 130, AND THAT KIDNEY LABS INCREASING. ORDERS RECEIVED.
--- NOTE | 2021-03-06 12:30 | NUR ---
PATIENT AFEBRILE. PATIENT DIAPHORETIC. PRECEDEX AT 0.7 MCG/ KG/ HOUR. PATIENT ON PC 25, PI 17, PEEP 17 AND 100% FIO2. RR TEENS TO 20S. HR IN THE 70S. SBP 90S TO LOW 100S. LEVOPHED ON SB. R GROIN SITE REMAINS WNL; NO CHANGES. 80 MG LASIX GIVEN. BLOOD SUGAR 142. NO OTHER ACUTE CHANGES TO NOTE ON AT THIS TIME. WILL CONTINUE TO MONITOR.
--- NOTE | 2021-03-06 13:41 | NUR ---
NO SEDATION VACATION TO BE DONE ON PATIENT TODAY PER DR. YATES, PATIENT SATS DECREASED INTO 80S WITH AGITATION AFTER PRECEDEX DECREASED FROM 0.7 TO 0.6 MCG/ KG/ HOUR.
--- NOTE | 2021-03-06 13:46 | NUR ---
CONTINUE TRICKLE TUBE FEEDS AT THIS TIME.
--- NOTE | 2021-03-06 16:15 | NUR ---
PATIENT AFEBRILE. PEEP DECREASED TO 16 AND FIO2 NOW AT 90%. HR IN THE 70S. SBP IN THE LOW 100S. LEVOPHED ON SB. R GROIN SITE REMAINS UNCHANGED. NO SIGNS OF PAIN NOTED. NO OTHER ACUTE CHANGES TO NOTE ON AT THIS TIME. WILL CONTINUE TO MONITOR.
--- NOTE | 2021-03-06 18:38 | NUR ---
SHIFT SUMMARY PATIENT REMAINED INTUBATED AND SEDATED. PATIENT REMAINED RESPONDING MOSTLY TO PAINFUL STIMULI. PATIENT HAD GROSS MOVEMENT TO ALL EXTREMITIES. PATIENT AGITATED AT TIMES WITH ORAL CARE, OTHER NURSING CARE, REPOSITIONING. PRECEDEX DECREASED BY 0.1 MCG/ KG/ HOUR OT AND PATIENT DESATTED INTO THE 80S FOR EXTENDED PERIOD OF TIME, EVEN ON 100% FIO2. PATIENT REMAINED AFEBRILE. PEEP DECREASED FROM 17 TO 16. FIO2 CURRENTLY AT 90%. CONTINUED TO SUCTION SCANT AMOUNT OF THICK, PINK/ PHAN SPUTUM FROM ETT. LUNGS REMAINED DIMINISHED THROUGHOUT. PATIENT SR, HR IN THE 70S. SBP 90S TO LOW 100S. LEVOPHED TITRATED TO OFF FROM 2 MCG/ MINUTE THIS AM. PULSES REMAIN FAINT. ANASARCA REMAINS. TF REMAINS AT GOAL RATE. NO BM THIS SHIFT. COREA DRAINED 1650 MLS OF KAREEN COLORED URINE. NO CHANGE TO SKIN EXCEPT THAT L FEM CENTRAL LINE DC'D. SITE REMAINS WNL; NO BLEEDING, BRUISING, OR HEMATOMA NOTED. PATIENT REPOSITIONED Q2H DURING SHIFT. NS INFUSING TKO. PRECEDEX AT 0.7 MCG/ KG/ HOUR. FENTANYL DRIP REMAINS AT 50 MCG/ HOUR. PROTONIX DRIP CHANGED TO BID PUSHES THIS SHIFT. LASIX 80 MG GIVEN X 2. BLOOD SUGARS 142 AND 137. PATIENT APPEARS COMFORTABLE AT THIS TIME. BED LOW. REPORT WILL BE GIVEN TO ASSUMING ARTIFICIAL LOG MACHINE OPERATOR NURSE SHORTLY.
--- NOTE | 2021-03-06 21:57 | NUR ---
UPDATE: LEVOPHED RESTARTED & SHORT SEDATION VACATION MAPs TRENDING DOWN, NOW ~60. LEVOPHED GTT RESTARTED @ 2mcg/min. PT ALSO GIVEN SHORT SEDATION VACATION OF APPROX 30min OFF THE PRECEDEX. PT UNABLE TO FOLLOW COMMANDS, NO INTENTIONAL MOVEMENTS, ONLY SOFT GAG W/ SUCTIONING. PRECEDEX RESTARTED. WILL CONTINUE TO MONITOR CLOSELY & REPORT APPROPRIATE.
[2021-03-07 05:29] LABS: Hematocrit 23.5 % (37.0-53.0); Hemoglobin 8.2 g/dL (13.5-17.5); Mean Corpuscular HGB 29.6 pg (26.0-34.0); Mean Corpuscular HGB Conc 34.9 g/dL (31.5-36.5); Mean Corpuscular Volume 85 fL (80-100); Mean Platelet Volume 11.2 fL (9.1-12.4); NRBC Auto 1.6 /100 WBC (0.0-0.2); Platelet Count 135 K/mm3 (150-400); RDW Coefficient Variation 17.8 % (11.7-14.2); RDW Standard Deviation 54.3 fL (35.1-46.3); Red Blood Cell Count 2.77 M/mm3 (4.30-5.90); White Blood Cell Count 12.51 K/mm3 (4.00-11.30)
[2021-03-07 06:04] LABS: Albumin, Blood 1.6 g/dL (3.4-5.0); Albumin/Globulin Ratio 0.4 (0.8-1.8); Bilirubin, Total 1.2 mg/dL (0.1-1.0); Bun/Creatinine Ratio 19.7 (12.0-20.0); Calcium, Blood 6.6 mg/dL (8.5-10.1); Creatinine, Blood 1.83 mg/dL (0.60-1.20); Potassium, Blood 3.2 mmol/L (3.5-5.5); Total Protein, Blood 5.6 g/dL (6.4-8.2)
[2021-03-07 06:11] LABS: BAND PERCENT MAN 18 % (0-8); BASOPHILS PERCENT MAN 0 % (0-2); EOSINOPHILS PERCENT MAN 0 % (0-6); LYMPHOCYTES ABSOLUTE MAN 0.75 K/mm3 (0.84-5.20); LYMPHOCYTES PERCENT MAN 6 % (21-46); MONOCYTES ABSOLUTE MAN 0.25 K/mm3 (0.16-1.47); MONOCYTES PERCENT MAN 2 % (4-13); MYELOCYTE ABSOLUTE MAN 0.25 K/mm3 (0.00-0.00); MYELOCYTE PERCENT MAN 2 % (0-0); NEUTROPHILS ABSOLUTE MAN 11.25 K/mm3 (1.96-9.15); SEG NEUTROPHILS PERCENT MAN 72 % (41-73); TOTAL CELLS COUNTED 100
--- NOTE | 2021-03-07 06:43 | NUR ---
SHIFT SUMMARY: PT DID WELL T/O THE NIGHT, STIRRING DURING NURSING CARE BUT QUICKLY RETURNING TO RESTING SOUNDLY. BP DID BECOME SOMEWHAT SOFT, REQUIRING LOW DOSE LEVOPHED TO BE RESTARTED, NOW MAINTAINING @ 1mcg/min. VS OTHERWISE STABLE. PARTIAL BED BATH COMPLETED THIS SHIFT. GTTs: FENTANYL 50mcg/hr, LEVOPHED 1mcg/min, PRECEDEX 0.7mcg/kg/hr. 2,600cc URINE OUTPUT. NO ACUTE NEG CHANGES. WILL CONTINUE TO MONITOR UNTIL REPORT OFF TO ONCOMING RN.
--- NOTE | 2021-03-07 07:45 | NUR ---
DR. YATES UPDATED ON PATIENT STATUS. INFORMED OF POTASSIUM OF 3.2, CALCIUM 6.6, WBCS AND KIDNEY LABS INCREASING. NO ORDERS RECEIVED AT THIS TIME.
--- NOTE | 2021-03-07 08:00 | NUR ---
INITIAL ASSESSMENT PATIENT INTUBATED AND SEDATED. PATIENT RESPONDS TO PAINFUL STIMULI AND NURSING CARE WITH GRIMACING, GROSS MOVEMENTS OF EXTREMITIES, AND AGITATION. PATIENT AFEBRILE. NO SIGNS OF PAIN NOTED AT THIS TIME. PATIENT ON VENT SETTINGS OF PC 25, PI 17, PEEP 16 AND 90% FIO2. LUNGS DIMINISHED AND COARSE THROUGHOUT. MODERATE AMOUNT OF THICK, PHAN/ PINK SPUTUM BEING SUCTIONED FROM ETT. PATIENT IN SR, HR IN THE 70S. SBP IN THE LOW 100S. LEVOPHED AT 1 MCG/ MINUTE. ANASARCA NOTED. SCDS IN PLACE. ABDOMEN MODERATELY DISTENDED, SOFT, WITH HYPOACTIVE BS NOTED. LAST BM ON 03/06. TF INFUSING AT TRICKLE RATE. COREA DRAINING KAREEN COLORED URINE. SKIN PALE. GROIN/ ABD FOLDS REDDENED. FISSURE TO COCCYX. R GROIN MID LEVEL NET DEVELOPER SITE WNL. CL DC'D FROM L FEM YESTERDAY- REMAINS WNL. NO BLEEDING, BRUISING, HEMATOMA NOTED TO EITHER FEM SITE. NS TKO. PRECEDEX AT 0.7 MCG/ KG/ HOUR. FENTANYL DRIP AT 50 MCG/ HOUR. PATIENT RECEIVING 40 MEQ KCL FOR POTASSIUM OF 3.2 THIS AM. BED LOW. WILL CONTINUE TO MONITOR PATIENT FREQUENTLY THROUGHOUT SHIFT.
--- NOTE | 2021-03-07 12:00 | NUR ---
PATIENT AFEBRILE. DIAPHORETIC. HR IN THE 70S. SBP 90S TO LOW 100S. LEVOPHED ON SB. PATIENT REMAINS ON SAME VENT SETTINGS. RR IN THE 20S. PATIENT APPEARS WITHOUT PAIN OR DISCOMFORT AT THIS TIME. BLOOD SUGAR 138. NO OTHER ACUTE CHANGES TO NOTE ON AT THIS TIME. WILL CONTINUE TO MONITOR.
--- NOTE | 2021-03-07 16:00 | NUR ---
PATIENT AFEBRILE. HR IN THE 70S. SBP 1-TEENS TO 120S. RR IN THE 20S. VENT FIO2 DECREASED TO 80%. PATIENT SATTING IN THE 90S. URINE ORANGE IN COLOR. COMPLETE BEDBATH PERFORMED. NO SIGNS OF PAIN NOTED AT THIS TIME. NO OTHER ACUTE CHANGES TO NOTE ON AT THIS TIME. WILL CONTINUE TO MONITOR.
--- NOTE | 2021-03-07 19:23 | NUR ---
SHIFT SUMMARY PATIENT REMAINED INTUBATED AND SEDATED THIS SHIFT. PATIENT REMAINED RESPONDING TO PAINFUL STIMULI. PATIENT REMAINED AFEBRILE. LUNGS REMAINED DIMINISHED AND COARSE. PATIENT REMAINED ON PC 25, PI 17, PEEP DECREASED FROM 13 TO 12 AND FIO2 DECREASED FROM 100 TO 75%. CONTINUED TO SUCTION MODERATE AMOUNT OF THICK, PHAN/PINK SPUTUM FROM ETT. PATIENT REMAINED IN SR, HR 70S TO 90S. SBP LOW 100S TO 120S. LEVOPHED PLACED ON SB THIS AM AND WAS NEVER RESTARTED. NO BM THIS SHIFT. TF REMAINED AT TRICKLE RATE. BAIT DIGGER TO ADJUST RATE TOMORROW. COREA DRAINED 2000 MLS OF KAREEN TO ORANGE COLORED URINE. PATIENT RECEIVED 80 MG IV LASIX THIS SHIFT. NO CHANGE TO SKIN. PATIENT REPOSITIONED Q2H. PRECEDEX REMAINS AT 0.7 MCG/ KG/ HOUR AND FENTANYL DRIP AT 50 MCG/ HOUR. PATIENT RECEIVED 40 MEQ KCL FOR AM POTASSIUM OF 3.2. EKG PERFORMED THIS SHIFT. 2 G CALCIUM GIVEN FOR CALCIUM OF 6.6 THIS AM. COMPLETE BEDBATH PERFORMED. PATIENT APPEARS COMFORTABLE AT THIS TIME. REPORT GIVEN TO [facility] BANKING ANALYST NURSE.
--- NOTE | 2021-03-07 21:47 | NUR ---
ASSUMING PT CARE: PT RESTING SUPINE. INTUBATED & SEDATED. VENT: AC PC 25/17 PEEP 12, FiO2 55%. GTTs: PRECEDEX 0.7mcg/kg/hr, FENTANYL 50mcg/hr. GRIMACES W/ ORAL CARE & REPOSITIONING, HOWEVER UNABLE TO FOLLOW COMMANDS. VS STABLE. COREA DRAINING DARK KAREEN URINE. SEE SHIFT ASSESSMENT.
--- NOTE | 2021-03-08 02:15 | NUR ---
UPDATE: PT OPENS EYES TO NAME & LIFTS BUE UP HIS HEAD WHILE RESTRAINTS ARE OFF FOR POSITION CHANGE. DOES NOT REACH FOR ETT BUT DOES OPEN EYES & TRACK ABOUT THE ROOM. UNABLE TO FOLLOW COMMANDS & QUICKLY RETURNS TO RESTING. WILL ASSESS NEURO LATER ON THIS MORNING W/ MORE SUBSTANTIAL SEDATION VACATION. NO ACUTE NEG CHANGES.
[2021-03-08 04:34] LABS: Hematocrit 22.6 % (37.0-53.0); Hemoglobin 7.6 g/dL (13.5-17.5); Mean Corpuscular HGB 28.9 pg (26.0-34.0); Mean Corpuscular HGB Conc 33.6 g/dL (31.5-36.5); Mean Corpuscular Volume 86 fL (80-100); Mean Platelet Volume 11.7 fL (9.1-12.4); NRBC ABSOLUTE 0.18 K/mm3 (0.00-0.02); NRBC Auto 1.5 /100 WBC (0.0-0.2); Platelet Count 163 K/mm3 (150-400); RDW Coefficient Variation 17.7 % (11.7-14.2); RDW Standard Deviation 54.4 fL (35.1-46.3); Red Blood Cell Count 2.63 M/mm3 (4.30-5.90); White Blood Cell Count 11.95 K/mm3 (4.00-11.30)
[2021-03-08 04:56] LABS: Albumin, Blood 1.5 g/dL (3.4-5.0); Albumin/Globulin Ratio 0.4 (0.8-1.8); Bilirubin, Total 1.7 mg/dL (0.1-1.0); Bun/Creatinine Ratio 23.2 (12.0-20.0); Calcium, Blood 7.3 mg/dL (8.5-10.1); Creatinine, Blood 1.81 mg/dL (0.60-1.20); Globulin, Blood 4.2 g/dL (2.2-4.0); Potassium, Blood 3.2 mmol/L (3.5-5.5); Total Protein, Blood 5.7 g/dL (6.4-8.2)
[2021-03-08 05:09] LABS: BAND PERCENT MAN 10 % (0-8); BASOPHILS PERCENT MAN 0 % (0-2); EOSINOPHILS ABSOLUTE MAN 0.11 K/mm3 (0.00-0.68); EOSINOPHILS PERCENT MAN 1 % (0-6); LYMPHOCYTES ABSOLUTE MAN 0.23 K/mm3 (0.84-5.20); LYMPHOCYTES PERCENT MAN 2 % (21-46); METAMYELOCYTE ABSOLUTE MAN 0.35 K/mm3 (0.00-0.00); METAMYELOCYTE PERCENT MAN 3 % (0-0); MONOCYTES ABSOLUTE MAN 0.59 K/mm3 (0.16-1.47); MONOCYTES PERCENT MAN 5 % (4-13); MYELOCYTE ABSOLUTE MAN 0.23 K/mm3 (0.00-0.00); MYELOCYTE PERCENT MAN 2 % (0-0); NEUTROPHILS ABSOLUTE MAN 10.39 K/mm3 (1.96-9.15); SEG NEUTROPHILS PERCENT MAN 77 % (41-73); TOTAL CELLS COUNTED 100
--- NOTE | 2021-03-08 06:29 | NUR ---
SHIFT SUMMARY: PT INTUBATED & SEDATED. VENT: PC 25, PI 17, PEEP 12, FiO2 75%. GTTs: PRECEDEX 0.7mcg/kg/hr, FENTANYL 50mcg/hr. W/ SEDATION VACATION PT WAS ABLE TO OPEN EYES & WITHDRAW FROM PAINFUL STIMULI. UNABLE TO FOLLOW COMMANDS, HOWEVER SEDATION VACATION WAS RELATIVELY SHORT, APPROX 5 min, PT BEGAN TO COUGH @ ETT & DESAT INTO THE low 80s, REQUIRING 100% FiO2 FOR SEVERAL MINUTES TO COME BACK UP TO THE 90s. PT MUCH LESS DIAPHORETIC THIS SHIFT, COMPARED TO LAST NIGHT PT APPEARS MUCH MORE COMFORTABLE. 1,700cc URINE OUTPUT. AM LABS SHOWED K+3.2 & Ca+ 7.3, CHRISTIAN MADE AWARE & WILL PUT IN ORDERS. NO ACUTE NEG CHANGES. WILL CONTINUE TO MONITOR UNTIL REPORT OFF TO ONCOMING RN.
--- NOTE | 2021-03-08 07:45 | NUR ---
INITIAL ASSESSMENT: PATIENT IS INTUBATED AND SEDATED. HE IS RESPONSIVE TO PAINFUL STIMULI. PRECEDEX INFUSING AT 0.7MCG/KG/HR AND FENTANYL DOG LICENSER INFUSING AT 50MCG/HR VIA DOG LICENSER. HRR, SR IN THE 70S PER MONITOR. SBP 111. PT ALSO HAS NS TKO WITH IV ABX. BT+, HYPOACTIVE LAST BM 03/06. COREA CATH PATENT AND DRAINING DARK YELLOW CLEAR URINE, 300ML EMPTIED FROM THE UROMETER. PT HAS GENERALIZED EDEMA AND SKIN IS PALE. SMALL WOUND FROM CENTRAL LINE IN THE LEFT GROIN MINIMAL AMT OF CLEAR DRAINAGE NOTED, NO OTHER OOZING OR HEMATOMA NOTED. ANGIO SITE TO RIGHT GROIN WITH CHG DRESSING MODERATE AMOUNT OF OLD BLOOD NOTED, REPLACED WITH A BANDAID. PPP. PT REPOSITIONED SUPINE. POTASSIUM 40 MEQ STARTED FOR POTASSIUM 3.2, WILL REASSESS.
--- NOTE | 2021-03-08 08:51 | NUR ---
UPDATE: RT WAS IN THE ROOM SUCTIONING THE PATIENT AFTER SHE LEFT HE STARTED TO BECOME MORE AWAKE. HIS EYES ARE OPEN HE IS ABLE TO TRACK STAFF AND MOVE ARMS. BIOX 83-88%, FIO2 INCREASED TO 100% TEMPORARILY FOR PATIENT TO RECOVER, BASE FIO2 INCREASED TO 80%. RT NOTIFIED. NEW FENTANYL SUPERVISOR ELECTRIC MOTOR TESTING IN PLACE. ATIVAN 2MG GIVEN FOR SEDATION. PRECEDEX RATE INCREASED TO 1.2 MCG/KG/HR PER DRUG DISCOVERY INFORMATICS SPECIALISTALON FITZGERALD. ATTEMPTED ORAL CARE AND SUCTIONING, PT IS BITING DOWN ON YONKUR. PT CLEANED UP AND REPOSITIONED. AM MEDS GIVEN VIA DOBHOFF. PT IS RESTING MORE COMFORTABLY, WILL CONTINUE TO REASSESS.
[2021-03-08 10:42] LABS: Triglycerides 2033 mg/dL (30-160)
--- NOTE | 2021-03-08 13:00 | NUR ---
UPDATE: PRBC'S DONE INFUSING. PRECEDEX TITRATED DOWN FROM 1.2 MCG/KG/HR DOWN TO 1.0 MCG/KG/HR. RT TO ROOM TO ASSESS PATIENT. PT IS ABLE TO OPEN HIS EYES AND TRACK STAFF, PT REASSURED. VSS. PT REPOSITIONED. NO OTHER NEEDS AT THIS TIME. CALL LIGHT IN REACH, WILL CONTINUE TO MONITOR.
--- NOTE | 2021-03-08 15:00 | NUR ---
PT REPOSITIONED AND TF INCREASED TO 25ML/HR.
--- NOTE | 2021-03-08 18:17 | NUR ---
SUMMARY: PATIENT INTUBATED AND SEDATED THROUGH OUT THE SHIFT. FIO2 AT THE BEGINNING OF THE SHIFT WAS 75%, IT WAS INCREASED TO 80% MID SHIFT, AND DECREASED DOWN TO 70% AT THE END OF THE SHIFT, OXYGEN SATURATIONS CURRENTLY 93%. NEW TF ORDERS TODAY, TF REMAINS THE SAME RATE INCREASED TO 25ML/HR WITH A GOAL RATE OF 35. H/H 02/11 TODAY, 1 UNIT PRBCS INFUSED. K+,3.2 THIS AM 40MEQ POTASSIUM GIVEN IV. PRECEDEX INCREASED TO 1.0 MCG/KG/HR AND FENTANYL GOING AT 50MCG/HR. PT AWAKENS WITH CARE AND IS ABLE TO TRACK STAFF WHILE AWAKE. NO OTHER CHANGES THIS SHIFT. WILL REPORT TO ONCOMING RN.
--- NOTE | 2021-03-08 22:00 | NUR ---
UPDATE: SEDATION VACATION PT AWAKES W/ NURSING CARE, OPENS EYES TO NAME & TRACKS ABOUT THE ROOM. ABLE TO SQUEEZE HANDS UPON COMMAND BUT UNSURE IF THIS IS INTENTIONAL, UNABLE TO FOLLOW ANY OTHER DIRECTIONS. AFTER APPROX 5 min, PT BECAME HYPOXIC IN THE 70s & AGITATED. FiO2 INC TO 100%, PRECEDEX INC TO 1.4mcg/kg/hr & PT CONTINUED TO SHAKE HEAD & COUGH AGAINST ETT. AFTER PRN ATIVAN PT WAS ABLE TO REST. REPOSITIONED W/ R ARM ABOVE HEAD & SUPPORTED BY PILLOWS PT RESTS ARMS ABOVE HIS HEAD WHEN RESTRAINTS REMOVED, THIS APPEARS TO BE A POSITION OF COMFORT FOR HIM. PT RESTING COMFORTABLY. BP CUFF & BIOX TAPE REPOSITIONED TO OPPOSITE ARM TO PRESERVE SKIN INTEGRITY.
--- NOTE | 2021-03-09 | NUR ---
UPDATE: BRITTNEY ROUNDING PT 96% ON 55%FiO2 & PEEP 16. UPDATED NEDITA ON PT's IMPROVEMENTS T/O THE NIGHT. PLAN TO DEC PEEP TO 14 @ NEXT TURN. NO OTHER ORDERS GIVEN. WILL CONTINUE TO MONITOR & REPORT APPROPRIATE.
--- NOTE | 2021-03-09 03:30 | NUR ---
UPDATE: INCREASED FiO2 REQUIREMENTS. @ PT's 0200 TURN TO L SIDE, PT BECAME HYPOXIC @ 80%, AFTER SEVERAL ROUNDS OF 2min 100% FiO2 INTERVALS, FiO2 WAS INC TO 85%. PEEP REMAINS 16. RT @ BEDSIDE TO ASSESS. INCREASED SECRETIONS TO ETT; THICK, BROWN, PLUGS. +ETT LAVAGE. WILL CONTINUE TO MONITOR CLOSELY.
[2021-03-09 04:24] LABS: BASOPHILS ABSOLUTE AUTO 0.03 K/mm3 (0.00-0.23); BASOPHILS PERCENT AUTO 0 % (0-2); EOSINOPHILS PERCENT AUTO 0 % (0-6); Hematocrit 24.1 % (37.0-53.0); Hemoglobin 8.1 g/dL (13.5-17.5); IMMATURE GRAN ABSOLUTE AUTO 0.81 K/mm3 (0.00-0.10); IMMATURE GRAN PERCENT AUTO 7 % (0-1); LYMPHOCYTES ABSOLUTE AUTO 0.41 K/mm3 (0.84-5.20); LYMPHOCYTES PERCENT AUTO 4 % (21-46); MONOCYTES ABSOLUTE AUTO 0.32 K/mm3 (0.16-1.47); MONOCYTES PERCENT AUTO 3 % (4-13); Mean Corpuscular HGB 28.9 pg (26.0-34.0); Mean Corpuscular HGB Conc 33.6 g/dL (31.5-36.5); Mean Corpuscular Volume 86 fL (80-100); Mean Platelet Volume 11.2 fL (9.1-12.4); NEUTROPHILS PERCENT AUTO 86 % (41-73); NRBC ABSOLUTE 0.14 K/mm3 (0.00-0.02); NRBC Auto 1.2 /100 WBC (0.0-0.2); Platelet Count 177 K/mm3 (150-400); RDW Coefficient Variation 17.6 % (11.7-14.2); White Blood Cell Count 11.27 K/mm3 (4.00-11.30)
[2021-03-09 04:43] LABS: BAND PERCENT MAN 5 % (0-8); BASOPHILS PERCENT MAN 0 % (0-2); EOSINOPHILS PERCENT MAN 0 % (0-6); LYMPHOCYTES ABSOLUTE MAN 0.22 K/mm3 (0.84-5.20); LYMPHOCYTES PERCENT MAN 2 % (21-46); METAMYELOCYTE ABSOLUTE MAN 0.22 K/mm3 (0.00-0.00); METAMYELOCYTE PERCENT MAN 2 % (0-0); MONOCYTES PERCENT MAN 0 % (4-13); MYELOCYTE ABSOLUTE MAN 0.22 K/mm3 (0.00-0.00); MYELOCYTE PERCENT MAN 2 % (0-0); NEUTROPHILS ABSOLUTE MAN 10.59 K/mm3 (1.96-9.15); SEG NEUTROPHILS PERCENT MAN 89 % (41-73); TOTAL CELLS COUNTED 100
[2021-03-09 04:44] LABS: Albumin, Blood 1.5 g/dL (3.4-5.0); Albumin/Globulin Ratio 0.3 (0.8-1.8); Bun/Creatinine Ratio 26.8 (12.0-20.0); Creatinine, Blood 1.83 mg/dL (0.60-1.20); Globulin, Blood 4.3 g/dL (2.2-4.0); Magnesium, Blood 2.3 mg/dL (1.6-2.4); Phosphorus, Blood 2.2 mg/dL (2.5-4.9); Potassium, Blood 3.2 mmol/L (3.5-5.5); Total Protein, Blood 5.8 g/dL (6.4-8.2)
--- NOTE | 2021-03-09 06:38 | NUR ---
SHIFT SUMMARY: PT CONTINUES TO BE INTUBATED & SEDATED W/ NO ACUTE CHANGES SINCE LAST ENTRY. VENT: PC 25/17 16/85%. GTTs: FENTANYL 50mcg/hr, PRECEDEX 1.4mcg/kg/hr. PT HAS BEEN DIFFICULT TO KEEP COMFORTABLE & SEDATED AFTER NURSING CARE. FiO2 REQUIREMENTS & PRECEDEX HAVE INCREASED T/O THE NIGHT. AM LABS SHOW A DECLINING KIDNEY FUNCTION, PHOS 2.2, & K+3.2. WILL DISCUSS W/ AM RN TO ADDRESS. 2,200 URINE OUTPUT THIS SHIFT, NO BM. WILL CONTINUE TO MONITOR & REPORT TO ONCOMING RN.
--- NOTE | 2021-03-09 08:00 | NUR ---
INITIAL ASSESSMENT: PATIENT IS INTUBATED AND SEDATED WITH PRECEDEX GTT AT 1.4 MCG/KG/HR AND FENTANYL 50MCG/HR. PT AWAKENS WITH REPOSITIONING, LOOKS AROUND THE ROOM AND IS ABLE TO TRACK STAFF. VENT SETTINGS PC 25, 17,PEEP 16, FIO2 85% BIOX 89-91% SUCTION PATIENT SMALL AMOUT OF THICK BROWN/RED SECRETIONS. LS DIM T/O WTIH SOME COARSENESS NOTED ON THE RIGHT SIDE. BT HYPOACTIVE, ABD DISTENDED AND FIRM, LAST BM 03/06. ANASARCA NOTED IN ALL EXTREMITIES. PCT AT BEDSIDE TO BATHE PATIENT. AM MEDS GIVEN AT THIS TIME. 2M ATIVAN GIVEN AT THIS TIME PATIENT IS AWAKE MOVING HEAD FROM SIDE TO SIDE. COREA CATH PATENT AND DRAINING CLEAR ORANGE URINE. K+ 3.2 AND PHOS 2.2, 20 MM K-PHOS ORDERED IV PER ELECTROLYTE PROTOCOL. WILL CONTINUE TO MONITOR.
--- NOTE | 2021-03-09 09:30 | NUR ---
UPDATE: PATIENT IS STILL AWAKE AND TACHYPNEC, 2MG ATIVAN GIVEN AT THIS TIME. DR. LUGO AT BEDSIDE. ORDER TO INCREASE THE FENTANYL BRAKE DRUM LATHE OPERATOR TO 75MCG/HR, BRAKE DRUM LATHE OPERATOR AND 4 HOUR DOSE LIMIT UPDATED IN BRAKE DRUM LATHE OPERATOR. PT IS STILL SPONTANEOUSLY OPENING EYES AND STARING STRAIGHT AHEAD. WILL CONTINUE TO MONITOR.
[2021-03-09 16:12] LABS: Bun/Creatinine Ratio 26.6 (12.0-20.0); Calcium, Blood 6.5 mg/dL (8.5-10.1); Creatinine, Blood 1.77 mg/dL (0.60-1.20); Potassium, Blood 3.2 mmol/L (3.5-5.5)
--- NOTE | 2021-03-09 17:00 | NUR ---
UPDATE: PTS BT ABSENT. DR. LUGO MADE AWARE, REGLAN DOSE INCREASED TO 10 MG IV Q6. SUPPOISTORY GIVEN, LAST BM 03/06. PT DID NOT TOLERATE TURNING WELL, OXYGEN SATURATIONS DROPPED AND HE WAS MORE AWAKE WITH EYES OPEN AND MOVING UPPER EXTREMETIES. 2MG ATIVAN IV GIVEN, PT STARTED TO CALM. FIO2 HAD TO BE INCREASED BY INCREMENTS OF 5, ,PTS FIO2 NOW BACK TO 85%. BIOX 91%. PT REPOSITIONED TO HIS LEFT SIDE.
--- NOTE | 2021-03-09 18:46 | NUR ---
SUMMARY: PATIENT SEDATED AND ON THE VENT SETTINGS PC 25/PI16/PEEP16 AND FIO2 85%. MID SHIFT I WAS ABLE TO WEAN THE PATIENTS FIO2 DOWN TO 75%, BUT AFTER REPOSITIONING HIM HE WAS MORE AWAKE AND AGIGTATED, FIO2 INCREASED TO 85% OXYGEN SATURATIONS CURRENTLY 91%, HE IS RESTING COMFORTABLY. ATIVAN 2MG IV GIVEN THREE TIMES TODAY AFTER REPOSITIONING THE PATIENT, TO HELP WITH SEDATION. FENTANYL NEUROBIOLOGIST INCREASED TO 75MCG/HR, PRECEDEX INFUSING AT 1.4 MCG/KG/HR. ELECTROLYTE PROTOCOL INITIATED, INITIAL K+ AND PHOS LOW REPLACED WITH 20MM OF K-PHOS. LABS RECHECKED THIS AFTERNOON, K+ STILL 3.2 40MEQ OF POTASSIUM INFUSING AT THIS TIME.
--- NOTE | 2021-03-09 20:45 | NUR ---
VERSED GTT SPOKE WITH DR LUGO REGARDING PT SEDATION LEVEL PRIOR TO PRONING WELL MEDICATIONS GIVEN JUST PRIOR TO PRONING, CONCERN FOR ADEQUATE SEDATION IS DISCUSSED AND VERSED GTT WAS ORDERED, GTT SET UP AND PROGRAMMED AT BEDSIDE HOWEVER PT IS NOW TOLERATING VENTILATOR WELL AND SATURATIONS ARE IMPROVED, WILL INITIATE GTT IF INADEQUATE SEDATION IS NOTED.
[2021-03-10 03:57] LABS: BASOPHILS ABSOLUTE AUTO 0.03 K/mm3 (0.00-0.23); BASOPHILS PERCENT AUTO 0 % (0-2); Hemoglobin 7.8 g/dL (13.5-17.5); LYMPHOCYTES ABSOLUTE AUTO 0.47 K/mm3 (0.84-5.20); LYMPHOCYTES PERCENT AUTO 5 % (21-46); MONOCYTES ABSOLUTE AUTO 0.27 K/mm3 (0.16-1.47); MONOCYTES PERCENT AUTO 3 % (4-13); Mean Corpuscular HGB 28.5 pg (26.0-34.0); Mean Corpuscular HGB Conc 32.5 g/dL (31.5-36.5); Mean Corpuscular Volume 88 fL (80-100); Mean Platelet Volume 10.8 fL (9.1-12.4); NRBC ABSOLUTE 0.13 K/mm3 (0.00-0.02); NRBC Auto 1.4 /100 WBC (0.0-0.2); Platelet Count 178 K/mm3 (150-400); RDW Coefficient Variation 17.6 % (11.7-14.2); RDW Standard Deviation 55.6 fL (35.1-46.3); Red Blood Cell Count 2.74 M/mm3 (4.30-5.90)
[2021-03-10 04:01] LABS: EOSINOPHILS PERCENT AUTO 0 % (0-6); IMMATURE GRAN ABSOLUTE AUTO 0.38 K/mm3 (0.00-0.10); IMMATURE GRAN PERCENT AUTO 4 % (0-1); NEUTROPHILS ABSOLUTE AUTO 8.05 K/mm3 (1.96-9.15); NEUTROPHILS PERCENT AUTO 88 % (41-73)
[2021-03-10 04:22] LABS: BAND PERCENT MAN 9 % (0-8); BASOPHILS PERCENT MAN 0 % (0-2); EOSINOPHILS PERCENT MAN 0 % (0-6); LYMPHOCYTES ABSOLUTE MAN 0.46 K/mm3 (0.84-5.20); LYMPHOCYTES PERCENT MAN 5 % (21-46); METAMYELOCYTE ABSOLUTE MAN 0.27 K/mm3 (0.00-0.00); METAMYELOCYTE PERCENT MAN 3 % (0-0); MONOCYTES ABSOLUTE MAN 0.18 K/mm3 (0.16-1.47); MONOCYTES PERCENT MAN 2 % (4-13); MYELOCYTE ABSOLUTE MAN 0.09 K/mm3 (0.00-0.00); MYELOCYTE PERCENT MAN 1 % (0-0); NEUTROPHILS ABSOLUTE MAN 8.18 K/mm3 (1.96-9.15); SEG NEUTROPHILS PERCENT MAN 80 % (41-73); TOTAL CELLS COUNTED 100
[2021-03-10 04:27] LABS: Alanine Aminotransfer (ALT/SGP 48 U/L (12-78); Albumin, Blood 1.5 g/dL (3.4-5.0); Albumin/Globulin Ratio 0.3 (0.8-1.8); Alk Phos 146 U/L (50-136); Anion Gap 10 mmol/L (6-16); Aspartate Aminotrans (AST/SGOT 336 U/L (12-37); Bilirubin, Total 1.3 mg/dL (0.1-1.0); Blood Urea Nitrogen 53 mg/dL (8-24); Bun/Creatinine Ratio 27.7 (12.0-20.0); CO2, Blood 27 mmol/L (21-32); Calcium, Blood 6.8 mg/dL (8.5-10.1); Chloride, Blood 100 mmol/L (98-108); Creatinine, Blood 1.91 mg/dL (0.60-1.20); Globulin, Blood 4.7 g/dL (2.2-4.0); Glomerular Filtration Rate 38 (60-); Glucose, Blood 157 mg/dL (70-99); Magnesium, Blood 2.4 mg/dL (1.6-2.4); Phosphorus, Blood 2.2 mg/dL (2.5-4.9); Potassium, Blood 3.2 mmol/L (3.5-5.5); Sodium, Blood 137 mmol/L (136-145); Total Protein, Blood 6.2 g/dL (6.4-8.2)
[2021-03-10 04:30] LABS: Triglycerides 1579 mg/dL (30-160)
--- NOTE | 2021-03-10 07:15 | NUR ---
SHIFT SUMMARY PATIENT REMAINED INTUBATED AND SEDATED W/ PRECEDEX @ 1.4MCG/KG/HR AND FENTANYL SOCIAL SCIENCES RESEARCH SCIENTIST @ 75MCG/HR; VERSED AT BEDSIDE ON SB. PATIENT TOLERATED REPOSITIONING POORLY WITH DESATURATIONS TO 87% AT LOWEST DESPITE SEDATION ABOVE AND SUPPLEMENTAL FENTANYL & ATIVAN IV PUSHES. PATIENT REMAINED PRONED THROUGHOUT SHIFT. INITIAL PRONING TOLERATED POORLY W/ DESATURATIONS OF SPO2 AND INCREASED FIO2 REQUIREMENTS. AFTER INITIAL ADJUSTMENT PATIENT REMAINED STABLE. VENT SETTINGS PC RATE 25, PI 17, 16 PEEP, 100% FIO2 AFTER PRONING. POTASSIUM, PHOS, AND H&H DISCUSSED WITH DR. LUGO AND 1 UNIT PRBC AND KPHOS ORDERED.
--- NOTE | 2021-03-10 08:30 | NUR ---
INITIAL ASSESSMENT PATIENT INTUBATED AND SEDATED. PATIENT RESPONDS TO PAINFUL STIMULI AND NURSING CARE WITH GROSS MOVEMENTS AND GRIMACING OF FACE. NO EYE MOVEMENT NOTED. EYES SWOLLEN. PATIENT AFEBRILE. NO SIGNS OF PAIN NOTED. PATIENT ON VENT SETTINGS OF PC 25, PI 17, PEEP 16 AND 100% FIO2. LUNGS COARSE THROUGHOUT AND DIMINISHED IN LOWER LOBES. MODERATE AMOUNT OF THICK, PHAN/ PINK SECRETIONS NOTED WITH ETT SUCTIONING. COPIOUS ORAL SECRETIONS NOTED. PATIENT IN SR, HR 80S TO 90S. SBP 80S TO LOW 100S. PULSES FAINT. SCDS IN PLACE. ANASARCA NOTED. ABDOMEN MODERATELY DISTENDED, SOFT, WITH NORMOACTIVE BS NOTED. DOBHOFF IN PLACE AND VHP TF INFUSING AT GOAL RATE OF 35 MLS/ HOUR WITH 30 ML WATER FLUSH Q4H. LAST BM ON THE . COREA DRAINING DARK YELLOW COLORED URINE. PATIEN RECEIVING SCHEDULED LASIX. FISSURE NOTED TO COCCYS. GROIN AND ABD FOLD REDDENED. PATIENT VERY DIAPHORETIC THIS AM. BILAT GROIN SITES WNL AT THIS TIME. NS TKO. PRECEDEX AT 1.4 MCG/ KG/ HOUR. FENTANYL AT 75 MCG/ HOUR. PATIENT RECEIVING 1 UNITS PRBCS, 1 G CALCIUM GLUCONATE AND 15 MM KPHOS THIS AM. BED LOW. WILL CONTINUE TO MONITOR PATIENT FREQUENTLY THROUGHOUT SHIFT.
--- NOTE | 2021-03-10 09:15 | NUR ---
DR. LUGO UPDATED ON PATIENT STATUS. INFORMED THAT PATIENT RECEIVING CALCIUM GLUCONATE AND KPHOS THIS AM FOR ION. CALCIUM OF 0.96, K OF 3.2 AND PHOS OF 2.2. INFORMED THAT PATIENT ON 100% FIO2 THIS AM. INSTRUCTED FOR NO SEDATION VACATION TODAY. NO OTHER ORDERS RECEIVED AT THIS TIME.
[2021-03-10 12:38] LABS: PCO2 Arterial 43.4 mmHg (35-45); PO2 Arterial 61.3 mmHg (80-100); pH Blood Arterial 7.43 (7.35-7.45)
--- NOTE | 2021-03-10 13:02 | NUR ---
PATIENT AFEBRILE. NO SIGNS OF PAIN NOTED. PATIENT SEDATED AND ON PARALZYING AGENT. NIMBEX INCREASED TO 2.5 MCG/ KG/ MINUTE FOR TOF 4/4. NO BIS MONITORING AVAILABLE AT THIS TIME. PATIENT UNRESPONSIVE. VENT SETTINGS CHANGED TO AC 25, TV 450, PEEP 20 AND 100% FIO2 BECAUSE HAVING A DIFFICULT TIME KEEPINGS SATS UP. PATIENT UNPRONED AROUND 1100 TO ALSO TRY AND HELP WITH DECREASING SATS. HR IN THE 90S. SBP 1-TEENS TO 140S. WILL CONTINUE TO MONITOR.
[2021-03-10 16:22] LABS: Hematocrit 25.4 % (37.0-53.0); Hemoglobin 8.3 g/dL (13.5-17.5)
--- NOTE | 2021-03-10 16:30 | NUR ---
PATIENT AFEBRILE. NO SIGNS OF PAIN NOTED. PATIENT ON AC 25, TV 400, PEEP 16, AND 65% FIO2. CHEST TUBE TO -20 CM H20; DRAINING SEROSANGUINOUS FLUID. FLUCTUATING AND BUBBLING NOTED. NO AIR LEAK NOTED. NO CREPITUS NOTED. HR IN THE 90S. HR LOW 100S TO 140S. NIMBEX INFUSING. WILL CONTINUE TO MONITOR.
--- NOTE | 2021-03-10 18:51 | NUR ---
SHIFT SUMMARY PATIENT REMAINED INTUBATED AND SEDATED. PATIENT RESPONDING TO PAINFUL STIMULI AND NURSING CARE BEFORE PLACED ON NIMBEX DRIP TO TRY TO HELP WITH SATURATIONS. NIMBEX CONTINUES TO BE INCREASED FOR TOF 4/4. BIS MONITORING NOT AVAILABLE AT THIS TIME. PATIENT REMAINED AFEBRILE. LUNGS REMAINED COARSE. PATIENT UNPRONED AROUND 1100 FOR SATS 70S TO 80S. SATS REMAINED LOW AFTER TURNING SUPINE, NIMBEX STARTED, CHEST XRAY PERFORMED, AND CHEST TUBE INSERTION FOR PNEUMO TO R SIDE. 02 SATS HAVE BEEN MUCH IMPROVED SINCE. CURRENT VENT SETTINGS ARE AC 25, TV 400, PEEP 16, AND 65% FIO2. PATIENT REMAINED IN SR TO ST, HR 80S TO LOW 100S. SBP 80S TO 140S. ANASARCA REMAINS. MOM GIVEN THIS SHIFT. NO BM THIS SHIFT. TF REMAINED AT GOAL RATE. COREA DRAINED 3225 MLS OF DARK YELLOW URINE. NO CHANGES TO SKIN NOTED. PATIENT HAS BEEN LESS DIAPHORETIC SINCE BEING ON BACK COMPARED TO PRONE. NS TKO, PRECEDEX AT 1.4 MCG/ KG/ HOUR, FENTANYL AT 75 MCG/ HOUR, NIMBEX AT 3 MCG/ KG/ MINUTE. PATIENT RECEIVED 1 UNIT PRBCS, 1 G CALCIUM, 15 MM KPHOS REPLACEMENTS THIS SHIFT. NO SEDATION VACATION GIVEN PER DR. LUGO. COMPLETE BED BATH PERFORMED THIS SHIFT. PATIENT APPEARS WITHOUT DISCOMFORT OR DISTRESS AT THIS TIME. BED LOW. REPORT WILL BE GIVEN TO ASSUMING LARRY OPERATOR NURSE SHORTLY.
--- NOTE | 2021-03-10 19:15 | NUR ---
ASSUMPTION OF CARE PT REMAINS INTUBATED. VENT SETTINGS AC 25/400/16/65%. AFTER RT EVALUATION, FIO2 DECREASED TO 55%, BIOX REMAINS <95%. PT RECEIVING PRECEDEX 1.4MCG/KG/HR, NIMBEX 3MCG/KG/MIN, AND FENTANYL 75MCG/HR. NIMBEX TITRATED DOWN TO 2.5MCG/KG/MIN. CHEST TUBE IN R ANTERIOR CHEST. INSERTION SITE DRESSING INTACT WITHOUT SIGNS OF DRAINAGE. SEROSANGUANOUS DRAINAGE PRESENT IN COLLECTION CHAMBER. ABDOMEN IS MODERATELY DISTENDED AND FIRM TO TOUCH. BOWEL SOUNDS HYPOACTIVE. PICC LINE IN DANDY, DRESSING WILL BE CHANGED. COREA IN PLACE.
[2021-03-11 03:39] LABS: Hemoglobin 8.2 g/dL (13.5-17.5); Mean Corpuscular HGB Conc 31.5 g/dL (31.5-36.5); Mean Corpuscular Volume 89 fL (80-100); Mean Platelet Volume 11.1 fL (9.1-12.4); Platelet Count 152 K/mm3 (150-400); RDW Coefficient Variation 18.1 % (11.7-14.2); RDW Standard Deviation 58.1 fL (35.1-46.3); Red Blood Cell Count 2.93 M/mm3 (4.30-5.90)
[2021-03-11 04:07] LABS: Alanine Aminotransfer (ALT/SGP 34 U/L (12-78); Albumin, Blood 1.5 g/dL (3.4-5.0); Albumin/Globulin Ratio 0.3 (0.8-1.8); Alk Phos 124 U/L (50-136); Anion Gap 8 mmol/L (6-16); Aspartate Aminotrans (AST/SGOT 284 U/L (12-37); Blood Urea Nitrogen 68 mg/dL (8-24); Bun/Creatinine Ratio 27.6 (12.0-20.0); CO2, Blood 28 mmol/L (21-32); Calcium, Blood 7.4 mg/dL (8.5-10.1); Chloride, Blood 101 mmol/L (98-108); Creatinine, Blood 2.46 mg/dL (0.60-1.20); Globulin, Blood 4.8 g/dL (2.2-4.0); Glomerular Filtration Rate 29 (60-); Glucose, Blood 165 mg/dL (70-99); Magnesium, Blood 2.1 mg/dL (1.6-2.4); Phosphorus, Blood 2.8 mg/dL (2.5-4.9); Potassium, Blood 3.5 mmol/L (3.5-5.5); Sodium, Blood 137 mmol/L (136-145); Total Protein, Blood 6.3 g/dL (6.4-8.2)
[2021-03-11 04:09] LABS: Triglycerides 1252 mg/dL (30-160)
[2021-03-11 05:20] LABS: BAND PERCENT MAN 8 % (0-8); BASOPHILS PERCENT MAN 0 % (0-2); EOSINOPHILS PERCENT MAN 0 % (0-6); LYMPHOCYTES ABSOLUTE MAN 0.68 K/mm3 (0.84-5.20); LYMPHOCYTES PERCENT MAN 7 % (21-46); MONOCYTES ABSOLUTE MAN 0.19 K/mm3 (0.16-1.47); MONOCYTES PERCENT MAN 2 % (4-13); NEUTROPHILS ABSOLUTE MAN 8.91 K/mm3 (1.96-9.15); SEG NEUTROPHILS PERCENT MAN 83 % (41-73); TOTAL CELLS COUNTED 100
--- NOTE | 2021-03-11 06:07 | NUR ---
SHIFT SUMMARY PT REMAINS INTUBATED. VENT SETTINGS VC 25/400/16/50% WITH BIOX <95%. PT HAS MINIMAL SECRETIONS. PT RECEIVING PRECEDEX 1.4MCG/KG/HR, NIMBEX 1.4MCG/KG/MIN, AND FENTANYL 75MLS/HR. PICC DRESSING CHANGED THIS SHIFT. LUNGS ARE CLEAR WITH LOWER LOBES DIMINISHED. HR REMAINS IN 80S-100S, NSR. PT HAS MODERATE EDEMA TO UPPER AND LOWER EXTREMITIES. ABDOMEN REMAINS DISTENDED AND FIRM TO PALPATION. TUBE FEEDING CONTINUES TO INFUSE AT GOAL RATE. DOBHOFF IN PLACE. COREA DRAINING DARK YELLOW URINE. OUTPUT OF 650ML THIS SHIFT. CHEST TUBE REMAINS IN R ANTERIOR CHEST. NO DRAINAGE THIS SHIFT. TO4: 2/4, THEN 0/4. BIS MONITOR SCORE 40-43. PT OCCASIONALLY BECOMES DIAPHORETIC/CLAMMY. TMAX 99.1. WILL REPORT TO ONCOMING RN.
--- NOTE | 2021-03-11 08:10 | NUR ---
INITIAL ASSESSMENT PATIENT INTUBATED, SEDATED, AND PARALYZED. PATIENT UNRESPONSIVE. TOF 4/4. EYES SWOLLEN. PATIENT AFEBRILE. NO SIGNS OF PAIN NOTED. PATIENT ON VENT SETTINGS OF VC 25, TV 400, PEEP 16 AND 50% FIO2. LUNGS CLEAR IN UPPER LOBES AND DIMINISHED IN LOWER LOBES. SMALL AMOUNT OF THICK, PHAN/ PINK SECRETIONS SUCTIONED FROM ETT. COPIOUS ORAL SECRETIONS NOTED. CHEST TUBE TO R ANTERIOR CHEST TO -20 CM WALL SUCTION. NO AIR LEAK NOTED. NO CREPITUS. BUBBLING AND FLUCTUATING NOTED. PATIENT SR, HR IN THE 90S. SBP IN THE LOW 100S. ANASARCA NOTED. PULSES FAINT. ABDOMEN MODERATELY DISTENDED, SOFT, WITH HYPOACTIVE BS NOTED. LAST DOCUMENTED BM ON 03/06. TF INFUSING AT GOAL RATE INTO DOBHOFF. COREA DRAINING DARK YELLOW URINE. PATIENT RECEIVING LASIX. FISSURE NOTED TO COCCYX. GROIN/ ABD FOLDS REDDENED. NS TKO. PRECEDEX AT 1.4 MCG/ KG/ HOUR. FENTANYL AT 75 MCG/ HOUR. NIMBEX AT 2.5 MCG/ KG/ MINUTE. PATIENT RECEIVING 1 G CALCIUM FOR IONIZED CALCIUM OF 0.93 THIS AM. PATIENT HAD COMPLETE BED BATH THIS AM. WILL CONTINUE TO MONITOR PATIENT FREQUENTLY THROUGHOUT SHIFT.
--- NOTE | 2021-03-11 12:30 | NUR ---
PATIENT HAS TEMP OF 99.3 DEGREES FAHRENHEIT. NIMBEX AT 2 MCG/ KG/ MINUTE. HR IN THE 90S. SBP 130S TO 140S. FIO2 60%. BLOOD SUGAR OF 189. NO OTHER ACUTE CHANGES TO NOTE ON AT THIS TIME. WILL CONTINUE TO MONITOR.
--- NOTE | 2021-03-11 12:30 | NUR ---
FULL BAG OF VERSED HANGING IN ROOM IN CLAM SHELL WITH PRIMARY TUBING PRIMED. VERSED WAS HUNG AND PRIMED BY RN NITESH ARIAS ON MONDAY NIGHT PER ORDER BY DR. LUGO. NITESH REPORTED THAT IT WAS TO BE HUNG AT BEDSIDE IN CASE OF NEED. NITESH REPORTED THAT IT WAS NEVER SCANNED AND NEVER HAD TO BE STARTED. VERSED HAS REMAINED IN CLAM SHELL SINCE. SINCE IT HASN'T BEEN NEEDED, THIS NURSE AND ADMIN DIR, WASTED TOGETHER AT THIS TIME.
--- NOTE | 2021-03-11 13:06 | NUR ---
DR. LOZANO'S OFFICE CALLED TO INFORM ABOUT BLEEDING FROM PEG TUBE SITE. FIRE EXTINGUISHER CHARGER TOOK MESSAGE AND STATED SHE WOULD GIVE THE MESSAGE TO DR. LOZANO AND THAT SHE WOULD HAVE HIM CALL BACK ONLY IF HE NEEDED TO GIVE PRIMARY NURSE A MESSAGE OR ORDER.
--- NOTE | 2021-03-11 16:00 | NUR ---
PATIENT REMAINS UNRESPONSIVE. PATIENT ON 0.5 MCG/ KG/ MINUTE OF NIMBEX. VENT SETTINGS AND CHEST TUBE REMAIN UNCHANGED. DR. LUGO UNCLOGGED CHEST TUBE AND AIR LEAK PRESENT FOR SHORT TIME. DR. LUGO INFORMED THAT THERE IS NO AIR LEAK AGAIN. PATIENT IN ST, HR LOW 100S TO 120S. SBP LOW 100S TO 120S. PATCH OF WHITE PUSTULES NOTED ON ABD ON L SIDE OF MIDLINE; DR. LUGO INFORMED. NO OTHER ACUTE CHANGES TO NOTE ON AT THIS TIME. WILL CONTINUE TO MONITOR.
--- NOTE | 2021-03-11 18:54 | NUR ---
SHIFT SUMMARY PATIENT REMAINED INTUBATED AND ON SEDATION. NIMBEX DECREASED THROUGHOUT SHIFT PER DR. LUGO. SOME TIME AFTER NIMBEX ON SB, PATIENT OPENING EYES AND WIGGLING EXTREMITIES. DR. LUGO INFORMED AND VERSED STARTED AT 1 MG/ HOUR. VENT RAMON, IT SEEMS PATIENT HAS BEEN TOLERATING BETTER WITHOUT NIMBEX TODAY THAN WAS YESTERDAY. PATIENT NOT FOLLOWING ANY COMMANDS. PATIENT HAD TMAX OF 99.3 DEGREES FAHRENHEIT THIS SHIFT. PATIENT ON AC/ VC 25, TV 400, PEEP 16 AND 60% FIO2. PATIENT CONTINUED TO HAVE COPIOUS ORAL SECRETIONS. CHEST TUBE REMAINED DRAINING SMALL AMOUNT OF SEROSANGUINOUS FLUID; TOTAL OF 140 MLS OUT SINCE WAS PLACED YESTERDAY. HR RANGED FROM 90S TO 120S. SBP 90S TO 140S. NO BM THIS SHIFT. TF REMAINED INFUSING AT GOAL RATE. COREA DRAINED 540 MLS OF DARK YELLOW COLORED URINE. PATIENT RECEIVING SCHEDULED LASIX. NOTED NEW PATCH OF WHITE PUSTULES TO ABD ON L OF MIDLINE; DR. LUGO INFORMED. NS TKO. PRECEDEX AT 1.4 MCG/ KG/ HOUR, FENTANYL AT 75 MCG/ HOUR, NIMBEX ON SB. VERSED AT 1 MG/ HOUR. PATIENT RECEIVED 1 G CALCIUM GLUCONATE THIS AM FOR ION. CALCIUM OF 0.93 THIS AM. PATIENT HAD COMPLETE BED BATH THIS SHIFT. PATIENT APPEARS COMFORTABLE AT THIS TIME. BED LOW. REPORT WILL BE GIVEN TO ASSUMING PRINCIPAL SOFTWARE ENGINEER NURSE SHORTLY.
--- NOTE | 2021-03-11 20:00 | NUR ---
ASSUMPTION OF CARE PT REMAINS INTUBATED. VENT SETTINGS AC 25/400/16/60%. OPENS EYES TO VERBAL STIMULI. UNABLE TO FOLLOW VERBAL COMMANDS. CHEST TUBE TO R ANTERIOR CHEST WITH WATER SEAL CHAMBER. NO AIR LEAK PRESENT AND SEROSANGUANOUS DRAINAGE IN COLLECTION CHAMBER. EXTREMITIES HAVE MODERATE NON-PITTING EDEMA. TUBE FEEDING (VHP) INFUSING AT GOAL RATE VIA DOBHOFF. KAREEN URINE DRAINING IN COREA. SEE SHIFT ASSESSMENT.
--- NOTE | 2021-03-12 03:33 | NUR ---
BLOOD GLUCOSE DISCUSSED RECENT BLOOD GLUCOSE LEVELS WITH DR LUGO. NO ADDITIONAL ORDERS AT THIS TIME.
[2021-03-12 05:52] LABS: PO2 Arterial 64.9 mmHg (80-100); pH Blood Arterial 7.42 (7.35-7.45)
[2021-03-12 05:58] LABS: Hematocrit 23.8 % (37.0-53.0); Hemoglobin 7.5 g/dL (13.5-17.5); Mean Corpuscular HGB 28.3 pg (26.0-34.0); Mean Corpuscular HGB Conc 31.5 g/dL (31.5-36.5); Mean Corpuscular Volume 90 fL (80-100); Mean Platelet Volume 11.8 fL (9.1-12.4); NRBC ABSOLUTE 0.06 K/mm3 (0.00-0.02); NRBC Auto 0.5 /100 WBC (0.0-0.2); Platelet Count 131 K/mm3 (150-400); RDW Coefficient Variation 18.4 % (11.7-14.2); Red Blood Cell Count 2.65 M/mm3 (4.30-5.90); White Blood Cell Count 11.47 K/mm3 (4.00-11.30)
--- NOTE | 2021-03-12 06:01 | NUR ---
SHIFT SUMMARY PT REMAINS INTUBATED. VENT SETTINGS VC 25/400/16/60%. PT WAKENS TO VERBAL STIMULI. DOES NOT FOLLOW COMMANDS. PT MAKES PURPOSEFUL MOVEMENTS WITH UPPER EXTREMITIES. PT RECEIVING PRECEDEX 1.4MCG/KG/HR, VERSED 3MG/HR, FENTANYL 75MCG/HR. CHEST TUBE REMAINS IN PLACE. SEROSANGUANOUS DRAINAGE IN COLLECTION CHAMBER. TUBE FEEDING INFUSING AT GOAL RATE. COREA IN PLACE DRAINING KAREEN URINE. OUTPUT OF 200ML THIS SHIFT. WILL REPORT TO ONCOMING RN.
[2021-03-12 06:19] LABS: BAND PERCENT MAN 7 % (0-8); BASOPHILS PERCENT MAN 0 % (0-2); EOSINOPHILS PERCENT MAN 0 % (0-6); LYMPHOCYTES ABSOLUTE MAN 0.57 K/mm3 (0.84-5.20); LYMPHOCYTES PERCENT MAN 5 % (21-46); MONOCYTES ABSOLUTE MAN 0.22 K/mm3 (0.16-1.47); MONOCYTES PERCENT MAN 2 % (4-13); NEUTROPHILS ABSOLUTE MAN 10.66 K/mm3 (1.96-9.15); SEG NEUTROPHILS PERCENT MAN 86 % (41-73); TOTAL CELLS COUNTED 100
[2021-03-12 06:31] LABS: Alanine Aminotransfer (ALT/SGP 19 U/L (12-78); Albumin, Blood 1.4 g/dL (3.4-5.0); Albumin/Globulin Ratio 0.3 (0.8-1.8); Alk Phos 100 U/L (50-136); Anion Gap 10 mmol/L (6-16); Aspartate Aminotrans (AST/SGOT 177 U/L (12-37); Bilirubin, Total 0.7 mg/dL (0.1-1.0); Blood Urea Nitrogen 92 mg/dL (8-24); Bun/Creatinine Ratio 22.9 (12.0-20.0); CO2, Blood 26 mmol/L (21-32); Calcium, Blood 6.6 mg/dL (8.5-10.1); Chloride, Blood 101 mmol/L (98-108); Creatinine, Blood 4.01 mg/dL (0.60-1.20); Globulin, Blood 4.6 g/dL (2.2-4.0); Glomerular Filtration Rate 16 (60-); Glucose, Blood 191 mg/dL (70-99); Magnesium, Blood 2.9 mg/dL (1.6-2.4); Potassium, Blood 3.6 mmol/L (3.5-5.5); Sodium, Blood 137 mmol/L (136-145)
[2021-03-12 06:33] LABS: Triglycerides 1210 mg/dL (30-160)
--- NOTE | 2021-03-12 08:30 | NUR ---
ASSESSMENT- PT SEDATED WITH PRECEDEX AT 1.4, VERSED GTT AT 5 MG/HR AND FENTANYL GTT AT 75 MCG/HR. MOVES HEAD, COUGHS WITH ANY STIMULUS, NO RESPONSE TO COMMANDS. ORALLY INTUBATED, TUBE SECURE. NEED TO INCREASE OXYGEN TO MAINTAIN SATURATIONS. HIGH PEEP. LUNGS COARSE, DIMINISHED BIBASILAR. RIGHT ANTERIOR CHEST TUBE INTACT TO 20 CM H20 SUCTION, NO CREPITUS, DDI. APICAL REGULAR, BP STABLE. NO S/S BLEEDING, TO RECEIVE UNIT OF BLOOD FOR LOW H/H OF 7.5. LEFT ARM PICC DI. TUBE FEEDING VIA DOBHOFF GOAL RATE 35 CC/HR. ABDOMEN LARGE, FIRM WITH BOWEL SOUNDS. UO LOW VIA COREA, URINE YELLOW. SCDS ON. BILATERAL WRIST RESTRAINTS, EXTUBATION RISK. REPOSITIONED. CALCIUM REPLACEMENT STARTED.
--- NOTE | 2021-03-12 09:15 | NUR ---
BLOOD STARTED WITHOUT PROBLEMS.
--- NOTE | 2021-03-12 09:34 | NUR ---
BLOOD INFUSING, NO S/S REACTION, INCREASED RATE TO 125 CC/HR. DR. CABRERA AT BEDSIDE, ASSESSED PT, UPDATED. NO AIR LEAK. NEEDED TO INCREASE FI02 TO 70% TO MAINTAIN SATURATIONS. DR. FRITZ HERE-CHANGED BRILINTA TO PLAVIX TO HELP DECREASE BLEEDING. CHEST TUBE CHANGED TO WATER SEAL PER DR. CABRERA
--- NOTE | 2021-03-12 11:46 | NUR ---
VS STABLE. DR. YATES CONSULT FOR WORSENING RENAL FAILURE. BITE BLOCK CHANGED. BLOOD INFUSED WITHOUT ANY S/S REACTION. LUNGS VERY DIMINISHED THROUGOUT. CT WITH SEROSANG DRAINAGE TO WATER SEAL. HYPOACTIVE BOWEL SOUNDS. LACRILUBE TO EYES
--- NOTE | 2021-03-12 13:59 | NUR ---
DR. YATES CALLED-SEE NEW ORDERS. ZAROXLYN GIVEN. TO GET BUMEX NOW INSTEAD OF LASIX. BEDSIDE ULTRASOUND BEING DONE
--- NOTE | 2021-03-12 16:14 | NUR ---
GIVEN IV BUMEX-ONLY 40 CC URINE RESPONSE. LINEN CHANGE, BATH DONE. TOLERATING VENT. 24 HOUR URINE COLLECTION. ALBUMIN GIVEN.
--- NOTE | 2021-03-12 17:03 | NUR ---
UPDATE TO DR. CABRERA REGARDING UO, BLOOD SUGARS. INSULIN COVERAGE ORDERED. VSS
--- NOTE | 2021-03-12 18:57 | NUR ---
UPDATE TO DR. YATES REGARDING URINE OUTPUT, POOR RESULTS AFTER ZAROXLYN AND BUMEX. 24 HOUR COLLECTION. TOLERATING VENT SETTINGS. SINUS. ENHANCED PRECAUTIONS. NO S/S BLEEDING. SCDS ON. CONTINUE WITH VERSED GTT AT 5 MG/HR, PRECEDEX GTT AT 1.4. TUBE FEEDING INCREASED TO 45 CC/HR.
--- NOTE | 2021-03-12 22:51 | NUR ---
CALL TO DR GONZALES REQUEST FOR MED FOR HYPERTENSION. PER DR GONZALES IV MED WILL BE ORDERED NOW.
[2021-03-13 03:44] LABS: BASOPHILS ABSOLUTE AUTO 0.02 K/mm3 (0.00-0.23); BASOPHILS PERCENT AUTO 0 % (0-2); EOSINOPHILS PERCENT AUTO 0 % (0-6); Hematocrit 24.9 % (37.0-53.0); Hemoglobin 7.9 g/dL (13.5-17.5); IMMATURE GRAN ABSOLUTE AUTO 0.33 K/mm3 (0.00-0.10); IMMATURE GRAN PERCENT AUTO 3 % (0-1); LYMPHOCYTES ABSOLUTE AUTO 0.35 K/mm3 (0.84-5.20); LYMPHOCYTES PERCENT AUTO 3 % (21-46); MONOCYTES ABSOLUTE AUTO 0.26 K/mm3 (0.16-1.47); MONOCYTES PERCENT AUTO 3 % (4-13); Mean Corpuscular HGB 28.5 pg (26.0-34.0); Mean Corpuscular HGB Conc 31.7 g/dL (31.5-36.5); Mean Corpuscular Volume 90 fL (80-100); Mean Platelet Volume 12.3 fL (9.1-12.4); NEUTROPHILS PERCENT AUTO 91 % (41-73); NRBC ABSOLUTE 0.05 K/mm3 (0.00-0.02); NRBC Auto 0.5 /100 WBC (0.0-0.2); Platelet Count 118 K/mm3 (150-400); RDW Coefficient Variation 17.7 % (11.7-14.2); RDW Standard Deviation 57.6 fL (35.1-46.3); Red Blood Cell Count 2.77 M/mm3 (4.30-5.90); White Blood Cell Count 10.16 K/mm3 (4.00-11.30)
[2021-03-13 04:02] LABS: Albumin, Blood 1.7 g/dL (3.4-5.0); Albumin/Globulin Ratio 0.4 (0.8-1.8); Bilirubin, Total 0.6 mg/dL (0.1-1.0); Bun/Creatinine Ratio 20.7 (12.0-20.0); Calcium, Blood 6.9 mg/dL (8.5-10.1); Creatinine, Blood 5.6 mg/dL (0.60-1.20); Globulin, Blood 4.5 g/dL (2.2-4.0); Magnesium, Blood 2.6 mg/dL (1.6-2.4); Phosphorus, Blood 3.7 mg/dL (2.5-4.9); Potassium, Blood 3.9 mmol/L (3.5-5.5); Total Protein, Blood 6.2 g/dL (6.4-8.2)
--- NOTE | 2021-03-13 05:20 | NUR ---
QUESTIONED CBG THIS RN DRAWS FROM PICC FOR CBG, REALIZED AFTER RESULTED AND UPLOADED THAT INFUSING MEDS WERE NOT PLACED ON STANDBY DURING WASTE AND DRAW. RESULT 140'S. THIS RN RECHECKS CBG W/CAPILLARY CHECK, 170'S, MEDICATED ACCORDINGLY WITH INSULIN.
--- NOTE | 2021-03-13 06:26 | NUR ---
CALL TO DR FRANCHESKA PRITCHARD NOTIFIED OF PT HGB OF 7.9. ORDER TO HOLD OFF ON ORDER FOR TRANSFUSION OF 1 PRBC PER NURSE NOTIFY. WOULD LIKE PT REASSESSED BY PROVIDER THIS AM.
--- NOTE | 2021-03-13 07:40 | NUR ---
SHIFT SUMMARY PT SEDATED AND INTUBATED ON VENT. PT OPENS EYES AND BITES AT TUBE W/TURNS AND TO THIS RN'S VOICE. PRECEDEX INFUSING AT 1.4 THROUGH SHIFT, VERSED AT 5 MG/HR. FENTANYL AT 75 MCG/HR, NS 10 MLS/HR. MEDICATED PER ORDER FOR HTN W/HYDRALAZINE. ATIVAN IV ADMIN PER ORDER FOR AGITATION, AND FENTANYL IVP ADMIN PER ORDER FOR PAIN/DISCOMFORT. TF INFUSING T/O SHIFT. COREA IN PLACE AND ON ICE D/T 24 HR COLLECTION ORDER. NO FURTHER DRAINAGE FROM CHEST TUBE DURING SHIFT, TUBE TO WATER SEAL, NO SUCTION. PICC HAS ABOVE MEDS INFUSING THROUGH PER ORDERS.
--- NOTE | 2021-03-13 08:30 | NUR ---
ASSESSMENT- PT SEDATED WITH PRECEDEX GTT AT 1.4 MCG/KG/HR AND VERSED GTT AT 5 MG/HR. OPENS EYES SPONTANEOUSLY, MOVES HEAD, NO RESPONSE TO COMMANDS. ORALLY INTUBATED, TUBE SECURE. TOLERATING VENT SETTINGS, DID DESATURATE TO 87% WITH TURN, TOOK FEW MINUTES TO RECOVER TO 90%. LUNGS CLEAR, DIMINISHED BASES. RIGHT ANTERIOR CT TO WATER SEAL, NO AIR LEAK, NO CREPITUS. DDI. SR, BP STABLE. LEFT ARM PICC DI. ABDOMEN LARGE, FIRM, FEW BOWEL SOUNDS. TF AT GOAL 55 CC/HR VIA DOBHOFF TUBE. UO LOW VIA COREA. DR. YATES HERE-SEE ORDERS. CALCIUM REPLACEMENT STARTED. FENTANYL GTT AT 75 MCG/HR NO S/S PAIN. REPOSITIONED. BILATERAL WRIST RESTRAINTS FOR SAFETY, EXTUBATION RISK. 24 URINE COLLECTION. ENHANCED PRECAUTIONS IN EFFECT
--- NOTE | 2021-03-13 10:20 | NUR ---
BUMEX IV STARTED, POOR RESULTS LESS THAN 20 CC URINE. SINUS TACH. VSS
--- NOTE | 2021-03-13 12:34 | NUR ---
ORDER CLARIFICATION- D/C ORDER TO TRANSFUSE IF HGB <8
--- NOTE | 2021-03-13 12:38 | NUR ---
UPDATE TO DR. YATES REGARDING URINE OUTPUT, ABG ORDERED. PT RX AGAIN FOR AGITATION, BITING AT ETT WITH RELIEF
[2021-03-13 13:15] LABS: PCO2 Arterial 42.2 mmHg (35-45); PO2 Arterial 65.4 mmHg (80-100); pH Blood Arterial 7.34 (7.35-7.45)
--- NOTE | 2021-03-13 15:57 | NUR ---
PT AWAKE, RESTLESS, MOVING HEAD, NO RESPONSE TO COMMANDS. REASSURANCE GIVEN. RX WITH ATIVAN, REPOSITIONED FOR COMFORT
[2021-03-13 17:05] LABS: Protein, Urine Quantitative 173.2 mg/dL (0.0-11.9)
--- NOTE | 2021-03-13 17:51 | NUR ---
BATH DONE, REPOSITIONED, SATURATIONS DECREASED TO 69% WITH REPOSITIONING. INCREASED FIO2 TO 100%, DR. CHAVEZ HERE-PEEP INCREASED TO 22. PAP 48. SEDATED WITH ATIVAN. REVERSE TRENDELENBURG POSITION TO HELP DECREASE PRESSURE FROM STOMACH, SATURATIONS RECOVERED. DR. YATES CALLED-UPDATED, STATES COULD HAVE DIALYSIS TONIGHT IF NEEDED. DR. CHAVEZ UPDATED.
--- NOTE | 2021-03-13 19:19 | NUR ---
VSS WITH NEW VENT SETTINGS. PROPOFOL STARTED FOR SEDATION ADJUNCT, CONTINUE VERSED GTT AT 6 MG/HR, PRECEDEX AT 1.4, FENTANYL AT 75 MCG/HR. BUMEX INFUSION 1 MG/HR. LEFT PICC DI. TUBE FEEDING REMAINS OFF. UO POOR. 24 URINE COLLECTION COMPLETED.
[2021-03-14 04:38] LABS: BASOPHILS ABSOLUTE AUTO 0.02 K/mm3 (0.00-0.23); BASOPHILS PERCENT AUTO 0 % (0-2); EOSINOPHILS PERCENT AUTO 0 % (0-6); Hematocrit 24.5 % (37.0-53.0); Hemoglobin 7.6 g/dL (13.5-17.5); IMMATURE GRAN ABSOLUTE AUTO 0.18 K/mm3 (0.00-0.10); IMMATURE GRAN PERCENT AUTO 2 % (0-1); LYMPHOCYTES PERCENT AUTO 4 % (21-46); MONOCYTES ABSOLUTE AUTO 0.17 K/mm3 (0.16-1.47); MONOCYTES PERCENT AUTO 2 % (4-13); Mean Corpuscular HGB 28.4 pg (26.0-34.0); Mean Corpuscular Volume 91 fL (80-100); Mean Platelet Volume 12.9 fL (9.1-12.4); NEUTROPHILS PERCENT AUTO 91 % (41-73); NRBC ABSOLUTE 0.05 K/mm3 (0.00-0.02); NRBC Auto 0.6 /100 WBC (0.0-0.2); Platelet Count 103 K/mm3 (150-400); RDW Coefficient Variation 17.9 % (11.7-14.2); RDW Standard Deviation 59.9 fL (35.1-46.3); Red Blood Cell Count 2.68 M/mm3 (4.30-5.90); White Blood Cell Count 7.87 K/mm3 (4.00-11.30)
[2021-03-14 04:56] LABS: Albumin, Blood 1.9 g/dL (3.4-5.0); Anion Gap 14 mmol/L (6-16); Blood Urea Nitrogen 135 mg/dL (8-24); Bun/Creatinine Ratio 19.9 (12.0-20.0); CO2, Blood 21 mmol/L (21-32); Calcium, Blood 6.6 mg/dL (8.5-10.1); Chloride, Blood 102 mmol/L (98-108); Creatinine, Blood 6.79 mg/dL (0.60-1.20); Glomerular Filtration Rate 9 (60-); Glucose, Blood 132 mg/dL (70-99); Magnesium, Blood 2.7 mg/dL (1.6-2.4); Phosphorus, Blood 4.4 mg/dL (2.5-4.9); Potassium, Blood 4.4 mmol/L (3.5-5.5); Sodium, Blood 137 mmol/L (136-145)
--- NOTE | 2021-03-14 07:19 | NUR ---
SHIFT SUMMARY PT IS SEDATED/INTUBATED. SEVERAL PERIODS OF EYE OPENING AND BITING AT ET-TUBE THROUGHOUT SHIFT DESPITE SEDATION MEDS. TRIALYSIS CATHETER PLACED BY DR CHAVEZ AT START OF SHIFT. INFUSES ALBUMIN W/O ISSUE. NAIN WELLS REPLACED BY JANAE CHI D/T BREAKING AT PORT SITE. CONFIRMED PLACEMENT W/XRAY BY DR CHAVEZ. BUMEX GTT AND Q6 DC PER DR CHAVEZ D/T CONTINUED LOW URINE OUTPUT. PT SBP 80'S-100'S. PRECEDEX AT 1.4 MCG/KG/MIN, PROPOFOL INCREASED TO 20, VERSED AT 6 MG/HR, AND FENTANYL GTT CONTINUES D/T INCREASING AGITATION DURING SHIFT AND INCREASED PEAK PRESSURES TO 50 W/PT BITING AT TUBE. PT DOES NOT RESPOND TO COMMANDS OR QUESTIONS WHEN EYES OPEN AND MOVING LIPS AND TEETH. MEDICATED PRN FOR AGITATION THIS AM BY JANAE CHI. MINIMAL URINE OUTPUT OF 54 MLS TOTAL T/O SHIFT. NO BUBBLING IN CHAMBER OF CHEST TUBE AT WATER SEAL. TOTAL VOLUME IN OUTPUT CHAMBER THIS AM IS 184. MARKED AND TIMED ON DEVICE. TUBE FEEDINGS KEPT AT 10 MLS/HR D/T DISTENDED ABD AND NO BM PER DR CHAVEZ. HR 90'S-110'S ST. PT AGITATED W/REPOSITIONING AND ORAL CARE T/O SHIFT.
--- NOTE | 2021-03-14 10:09 | NUR ---
Care Assumed 0700 pt intubated and sedated. Vent settings: AC VC 25/400/20/75%, FIO2 90%. Propofol GTT 10 MCG/KG/MIN, Precedex mcg/kg/hr, Fentanyl 75 mcg/hr, versed 6 mg/hr, infusing via PICC to MARTINE. Pt responds to noxious stumli during oral care. Chest tube to right anterior, weal seal, no air leak or crepitus. Dobhoff in place, VHP @ goal of 10 ml/hr. Abd distended and firm. Dialysis at bedside. SWB in place. VSS. NSR.
--- NOTE | 2021-03-14 12:17 | NUR ---
Update- Spoke to patients father and updated on current care being provided and patients decline. Father states he will be coming to the patients window today to see patient. FIO2 increased to 80% due to patient chewing on tube and coughing, SPO2 low 80%. Increased by RT. Dialysis completed and per dialysis nurse 500 ml of fluid removed. VSS. NSR.
--- NOTE | 2021-03-14 15:30 | NUR ---
Update- Vent settings changed to AC VC 25/400/18/75% but patient did not tolerate well, SPO2 decreasing to 84%. FIO2 increased back to 80%. Spoke to Dr. Shahid and per provider he would like PEEP increased back to 20 and can go up to 25 as needed to decrease FIO2. All drips remains the same.
--- NOTE | 2021-03-14 18:21 | NUR ---
Shift Summary Vent settings: AC/VC 25/400/20/80%, SPO2 > 90%. Pt biting on tube frequently but unable to follow commands, opend eyes once but not tracking. Propofol 20 mcg/kg/min, Precedex 1.4 mcg/kg/hr, Versed 6 mcg/hr, and Fentanyl GRADES 1 THROUGH 6 TEACHER, infusing via PICC. vhp @ goal, abd firm and distended. Dr. Shahid aware. CT remains in place no air leak. VSS. NSR. SWB reamins in place. Dialysis completed today.
[2021-03-15 04:20] LABS: BASOPHILS ABSOLUTE AUTO 0.02 K/mm3 (0.00-0.23); BASOPHILS PERCENT AUTO 0 % (0-2); Hematocrit 22.3 % (37.0-53.0); Hemoglobin 7.1 g/dL (13.5-17.5); Mean Corpuscular HGB 29.2 pg (26.0-34.0); Mean Corpuscular HGB Conc 31.8 g/dL (31.5-36.5); Mean Corpuscular Volume 92 fL (80-100); Mean Platelet Volume 12.8 fL (9.1-12.4); NRBC ABSOLUTE 0.04 K/mm3 (0.00-0.02); NRBC Auto 0.5 /100 WBC (0.0-0.2); Platelet Count 110 K/mm3 (150-400); RDW Coefficient Variation 17.8 % (11.7-14.2); RDW Standard Deviation 59.8 fL (35.1-46.3); Red Blood Cell Count 2.43 M/mm3 (4.30-5.90); White Blood Cell Count 7.89 K/mm3 (4.00-11.30)
[2021-03-15 04:22] LABS: EOSINOPHILS PERCENT AUTO 0 % (0-6); IMMATURE GRAN ABSOLUTE AUTO 0.18 K/mm3 (0.00-0.10); IMMATURE GRAN PERCENT AUTO 2 % (0-1); LYMPHOCYTES ABSOLUTE AUTO 0.38 K/mm3 (0.84-5.20); LYMPHOCYTES PERCENT AUTO 5 % (21-46); MONOCYTES ABSOLUTE AUTO 0.11 K/mm3 (0.16-1.47); MONOCYTES PERCENT AUTO 1 % (4-13); NEUTROPHILS PERCENT AUTO 91 % (41-73)
[2021-03-15 04:49] LABS: Albumin, Blood 1.7 g/dL (3.4-5.0); Anion Gap 13 mmol/L (6-16); Blood Urea Nitrogen 106 mg/dL (8-24); Bun/Creatinine Ratio 17.4 (12.0-20.0); CO2, Blood 22 mmol/L (21-32); Calcium, Blood 6.9 mg/dL (8.5-10.1); Chloride, Blood 103 mmol/L (98-108); Glomerular Filtration Rate 10 (60-); Glucose, Blood 120 mg/dL (70-99); Magnesium, Blood 2.6 mg/dL (1.6-2.4); Phosphorus, Blood 4.8 mg/dL (2.5-4.9); Potassium, Blood 4.5 mmol/L (3.5-5.5); Sodium, Blood 138 mmol/L (136-145)
--- NOTE | 2021-03-15 06:42 | NUR ---
END OF SHIFT SUMMARY: PATIENT CONTINUES TO OPEN EYES AND BITE TUBE BUT DOES NOT FOLLOW COMANDS. BITE BLOCK AND HOLISTER REPLACED OVERNIGHT. PER DAY REPORT, I WAS TOLD TO NOT GO OVER 80% FIO2. THERE IS NO ORDER FOR THAT OR A NURSE NOTIFY. PATIENT TITRATED UP TO 90% DUE TO DESATS ON A BIG TURN WITH PLANS TO GO BACK DOWN TO 80%. I WENT IN PATIENT ROOM AROUND 0630 AND NOTICED PEEP WAS AT 25 AND 95%. I WAS MADE UNAWARE OF THESE CHANGES BUT SPOKE WITH PONCHO-CHARGE ABOUT THIS AND NO CHANGES WERE MADE. PATIENT CURRENTLY AT 94%. STOMACH REMAINS FIRM AND DISTENDED. 20ML OF URINE OVERNIGHT. SPOKE WITH DR. YATES THIS MORNING AND DISCUSSED PLANS FOR DIALYIS AGAIN TODAY. SLIGHT DROP OF H/H AT 7.1 THIS MORNING. FEEDS AT 10ML/HR. ORDER UPDATED FROM YESTERADAY.
[2021-03-15 07:54] LABS: Triglycerides 835 mg/dL (30-160)
--- NOTE | 2021-03-15 10:18 | NUR ---
Care Assumed 0700 Pt intubated and sedated. Propofol 25 mcg/kg/min, Precedex 1.4 mcg/kg/hr, Fentanyl AIRCRAFT ENGINE MECHANIC 75 mcg/hr, and Versed 6 mg/hr. Pt opened eyes once but unable to follow commands or track. Vent settings: AC/VC 25/400/25/95%, SPO2 > 90%. VHP @ goal, abg distended and firm, dobhoff remains in place. Right anterior chest tube in place, Dr. Mota in to assess chest tube, flushed. Dialysis cath to [facility], pt currently recieving dialysis. VSS. NSR.
--- NOTE | 2021-03-15 17:58 | NUR ---
Shift Summary Pt intubated and sedated. Propofol GTT 15 mcg/kg/min and Precedex 1.4 mcg/kg/hr, and Versed 6 mg/hr, and Fentanyl JANITORIAL CLEANER @ 75 mcg/hr. Pt does not follow commands, opened eyes once. Vent settings: AC/VC 25/400/21/95%, SPO2 > 90%. VHP @ goal, abd continues to be distended. Temp vargas in place, 15 ml of urine output. 2 L removed during dialysis. During having 1 unit of blood transfusion. Pt hypotensive after dialysis but MAP > [address] Mota spoke to patients father to update on care being provided. Will report to oncoming shift.
[2021-03-15 19:07] LABS: HBSAG SCREEN Negative (Negative); HEP A AB, IGM Negative (Negative); HEP B CORE AB, IGM Negative (Negative); HEP C VIRUS AB <0.1 (0.0-0.9)
--- NOTE | 2021-03-15 22:20 | NUR ---
CALL TO DR CABRERA CALL TO DR CABRERA TO NOTIFY OF PT SATS MID TO HIGH 80'S FOLLOWING REPOSITIONING. PEEP UP TO 25, FIO2 AT 100%. PER DR CABRERA 84% SPO2 IS ACCEPTABLE AT THIS TIME, DOES NOT WANT PEEP INCREASED ANY FURTHER. DR CABRERA WOULD LIKE TO BE NOTIFIED IF PT MAINTAINS BELOW 84% SPO2.
--- NOTE | 2021-03-16 02:00 | NUR ---
CALL TO DR DEBORAH CABRERA NOTIFIED OF PT'S SATS DECREASING INTO LOWER 80'S, VARIES FROM 80-85% W/PEEP OF 25, FIO2 AT 100% ON VENT. DISCUSSED PERSISTNENT EXAGGERATED NODDING OF HEAD W/VENT. THIS RN INQUIRES IF DR CABRERA WOULD LIKE A CHEST XRAY. DR CABRERA STATES THERE WILL BE ONE PERFORMED IN AM ORDERED. DR CABRERA ORDERS TO NOT INCREASE PEEP ANY FURTHER AT THIS TIME.
[2021-03-16 05:52] LABS: BASOPHILS ABSOLUTE AUTO 0.03 K/mm3 (0.00-0.23); BASOPHILS PERCENT AUTO 0 % (0-2); Hematocrit 26.4 % (37.0-53.0); Hemoglobin 8.2 g/dL (13.5-17.5); Mean Corpuscular HGB 28.5 pg (26.0-34.0); Mean Corpuscular HGB Conc 31.1 g/dL (31.5-36.5); Mean Corpuscular Volume 92 fL (80-100); Mean Platelet Volume 12.8 fL (9.1-12.4); NRBC ABSOLUTE 0.04 K/mm3 (0.00-0.02); NRBC Auto 0.4 /100 WBC (0.0-0.2); Platelet Count 144 K/mm3 (150-400); RDW Coefficient Variation 18.3 % (11.7-14.2); RDW Standard Deviation 60.9 fL (35.1-46.3); Red Blood Cell Count 2.88 M/mm3 (4.30-5.90); White Blood Cell Count 9.02 K/mm3 (4.00-11.30)
[2021-03-16 06:02] LABS: EOSINOPHILS PERCENT AUTO 0 % (0-6); IMMATURE GRAN ABSOLUTE AUTO 0.28 K/mm3 (0.00-0.10); IMMATURE GRAN PERCENT AUTO 3 % (0-1); LYMPHOCYTES PERCENT AUTO 6 % (21-46); MONOCYTES ABSOLUTE AUTO 0.08 K/mm3 (0.16-1.47); MONOCYTES PERCENT AUTO 1 % (4-13); NEUTROPHILS ABSOLUTE AUTO 8.13 K/mm3 (1.96-9.15); NEUTROPHILS PERCENT AUTO 90 % (41-73)
[2021-03-16 06:13] LABS: BAND PERCENT MAN 2 % (0-8); BASOPHILS ABSOLUTE MAN 0.18 K/mm3 (0.00-0.23); BASOPHILS PERCENT MAN 2 % (0-2); EOSINOPHILS PERCENT MAN 0 % (0-6); LYMPHOCYTES ABSOLUTE MAN 0.18 K/mm3 (0.84-5.20); LYMPHOCYTES PERCENT MAN 2 % (21-46); MONOCYTES PERCENT MAN 0 % (4-13); NEUTROPHILS ABSOLUTE MAN 8.65 K/mm3 (1.96-9.15); SEG NEUTROPHILS PERCENT MAN 94 % (41-73); TOTAL CELLS COUNTED 100
[2021-03-16 06:16] LABS: Albumin, Blood 1.7 g/dL (3.4-5.0); Albumin/Globulin Ratio 0.4 (0.8-1.8); Bilirubin, Total 0.6 mg/dL (0.1-1.0); Bun/Creatinine Ratio 16.3 (12.0-20.0); Calcium, Blood 7.8 mg/dL (8.5-10.1); Creatinine, Blood 5.65 mg/dL (0.60-1.20); Globulin, Blood 4.5 g/dL (2.2-4.0); Magnesium, Blood 2.2 mg/dL (1.6-2.4); Phosphorus, Blood 5.8 mg/dL (2.5-4.9); Potassium, Blood 4.3 mmol/L (3.5-5.5); Total Protein, Blood 6.2 g/dL (6.4-8.2)
--- NOTE | 2021-03-16 08:00 | NUR ---
DR. CABRERA UPDATED ON PATIENT STATUS. INFORMED THAT PATIENT ONLY HAD OUT 30 MLS OF URINE ON MARKET RESEARCH ASSOCIATE. INFORMED THAT KIDNEY LABS INCREASED. INFORMED THAT PHOS AND POTASSIUM HIGH. INFORMED THAT IONIZED CALCIUM 1.02 THIS AM. INFORMED THAT PROPOFOL AT 60 MCG/ KG/ MINUTE. INFORMED THAT PEEP AT 25 AND FIO2 AT 100%. NO ORDERS OBTAINED AT THIS TIME.
--- NOTE | 2021-03-16 08:10 | NUR ---
SHIFT SUMMARY PT OPENS EYES OCCASIONALLY TO TOUCH, DOES NOT FOLLOW COMMANDS. OCCASIONALLY MOVES MOUTH AGAINST TUBE AND LIFTS HEAD UP AND DOWN W/VENT RR OF 25. PUPILS EQUAL AND REACTIVE. WORSENED HYPOXIA W/FIRST REPOSITIONING. SATS NEVER RECOVERED FULLY. PEEP BACK UP TO 25 FROM 21 D/T DESATS INTO LOW 80'S. FIO2 AT 100%. DR CABRERA UPDATED THROUGH NIGHT, ORDERS TO MAKE NO CHANGES TO VENT SETTINGS. PROPOFOL INCREASED TO 60 MCG/KG/HR W/ADMIT WEIGHT INPUT. PRECEDEX REMAINS AT 1.4 MCG. FENTANYL AT 75 MCG/HR. NS AT 10 MLS/HR TKO. VERSED MAINTAINED AT 6 MG/HR. TUBE FEEDING CONTINUES AT 10 MLS/HR. PT'S ABDOMEN REMAINS DISTENDED AND FIRM WITH LITTLE TO NO BOWEL SOUNDS. PT'S LS INCREASINGLY DIMINISHED T/O SHIFT. NO BM. REPOSITIONED OFF PILLOWS ONLY ONCE MORE AFTER INITIAL EPISODE OF SPO2 DESATURATION. NO CHANGE TO CHEST TUBE AT WATER SEAL. TOTAL VOLUME IN DRAINAGE CHAMBER AT 196. NO CHANGE FROM START OF SHIFT. DR CABRERA UPDATED THIS AM AT 0556. NO NEW ORDERS.
--- NOTE | 2021-03-16 08:30 | NUR ---
INITIAL ASSESSMENT PATIENT INTUBATED AND SEDATED. PATIENT IS RESPONDING TO PAINFUL STIMULI. NO SIGNS OF PAIN NOTED AT THIS TIME. AFEBRILE. PATIENT ON VENT SETTINGS OF AC 25, TV 400, PEEP 25 AND FIO2 100%. LUNGS COARSE THROUGHOUT, DIMINISHED IN LOWER LOBES. PATIENT IN SR TO ST, HR 90S TO LOW 100S. SBP LOW 100S TO 120S. ANASARCA NOTED. SCDS IN PLACE. ABDOMEN DISTENDED, FIRM, WITH HYPOACTIVE BS NOTED. LAST BM ON 03/06. DOBHOFF IN PLACE. TF INFUSING AT GOAL RATE OF 10 MLS/ HOUR. COREA DRAINING DARK YELLOW URINE WITH SEDIMENT NOTED. SCANT AMOUNT DRAINING. FISSURE TO COCCYX. GROIN/ ABD FOLDS REDDENED. SKIN PALE. NS TKO. PRECEDEX AT 1.4 MCG/ KG/ HOUR. FENTANYL AT 75 MCG/ HOUR. PROPOFOL AT 50 MCG/ KG/ MINUTE. VERSED AT 6 MG/ HOUR. BED LOW. WILL CONTINUE TO MONITOR.
--- NOTE | 2021-03-16 12:00 | NUR ---
PATIENT AFEBRILE. NO SIGNS OF PAIN NOTED. HR 90S TO LOW 100S. SBP IN THE 90S. NO OTHER ACUTE CHANGES TO NOTE ON AT THIS TIME. WILL CONTINUE TO MONITOR.
--- NOTE | 2021-03-16 18:33 | NUR ---
review of pt with staff. will assist with updating family.
--- NOTE | 2021-03-16 19:00 | NUR ---
SHIFT SUMMARY PATIENT REMAINED INTUBATED AND SEDATED. PATIENT RESPONDED TO PAINFUL STIMULI. PATIENT REMAINED AFEBRILE. NO SIGNS OF PAIN NOTED THIS SHIFT. LUNGS COARSE AND DIMINISHED. VENT SETTINGS REMAINED THE SAME AT AC 25, TV 400, PEEP 25 AND 100% FIO2. CHEST TUBE HAS REMAINED TO WATER SEAL; NO BUBBLING NOTED IN CHAMBER THIS SHIFT. PATIENT REMAINED IN SR TO ST, HR 80S TO LOW 100S. SBP 70S TO 120S. PATIENT'S HANDS APPEAR MORE EDEMATOUS THAN AT BEGINNING OF SHIFT. NO BM THIS SHIFT. TF REMAINS AT GOAL RATE OF 10 MLS/ HOUR. COREA DRAINED 5 MLS OF URINE; DR. CABRERA AWARE. NO CHANGES TO SKIN. PATIENT REPOSITIONED Q2H. PROPOFOL AT 35 MCG/ KG/ MINUTE, NS TKO, PRECEDEX AT 1.4 MCG/ KG/ HOUR, VERSED AT 6 MG/ HOUR. PATIENT HAD 1.5 L DIALYSIS OFF TODAY. PATIENT APPEARS COMFORTABLE AT THIS TIME. REPORT WILL BE GIVEN TO ASSUMING DIGITAL COMPOSER NURSE SHORTLY.
--- NOTE | 2021-03-16 19:15 | NUR ---
ASSUMED CARE OF PT. REPORT RECEIVED FROM ALON SILVA. PT IS CURRENTLY SATURATING AT 93% ON CURRENT VENT SETTINGS OF AC 25, TV400, PEEP 25, AND FIO2 100%. PERRL 2MM, NO GRIMACE WITH ORAL CARE. COMPLIANT ON VENT WITH PROPOFOL AT 35MCG/KG/MIN, PRECEDEX AT 1.4MCG, AND FENTANYL AT 75MCG/HR. LS CLEAR/DIMINISHED. ABD DISTENDED AND TIGHT, NO BT AUSCULTATED. DOBHOFF IN PLACE AT 65CM SECURE WITH TAPE, COREA DRAINING TO GRAVITY WITH VERY SCANT OUTPUT. EXT EDEMATOUS, PROPPED ON PILLOWS. CHEST TUBE IN PLACE, DRESSING INTACT, TO WATER SEAL, AND R EJ HD CATH IN PLACE. PT WAS DIALYZED TODAY AND BP'S ARE SOFT. LEVOPHED ORDER IN PLACE FOR BP SUPPORT. WILL CONTINUE TO MONITOR.
--- NOTE | 2021-03-17 00:43 | NUR ---
03/17 @ 0030 ABOUT 1 HOUR AFTER ETT EXCHANGEMENT, SPO2 STILL ~ 75%, INFORMED DR PRITCHARD, STATED TO RESTART NIMBEX. WILL CONTINUE TO MONITOR.
--- NOTE | 2021-03-17 01:00 | NUR ---
PT'S FAMILY IS UPDATED BY PHONE.
--- NOTE | 2021-03-17 01:00 | NUR ---
CUFF LEAK NOTED AND PT'S VENT BEGINS ALARMING. RT CALLED TO BEDSIDE AND DETERMINED ETT CUFF IS BLOWN. MD CALLED TO BEDSIDE TO REPLACE ETT EMERGENTLY SPO2 DROPS TO 70%. ETT REPLACED VIA BOUGIE. 8.0 ETT PLACED AT 28CM AT TEETH CONFIRMED BY COLORMETRIC DEVICE AND BILAT LS, THEN CXR, READ BY DR SOTO.
[2021-03-17 04:15] LABS: BASOPHILS ABSOLUTE AUTO 0.02 K/mm3 (0.00-0.23); BASOPHILS PERCENT AUTO 0 % (0-2); Hematocrit 25.2 % (37.0-53.0); Hemoglobin 7.8 g/dL (13.5-17.5); Mean Corpuscular HGB 28.7 pg (26.0-34.0); Mean Corpuscular Volume 93 fL (80-100); Mean Platelet Volume 12.1 fL (9.1-12.4); NRBC ABSOLUTE 0.06 K/mm3 (0.00-0.02); NRBC Auto 0.7 /100 WBC (0.0-0.2); Platelet Count 193 K/mm3 (150-400); RDW Coefficient Variation 18.4 % (11.7-14.2); RDW Standard Deviation 61.9 fL (35.1-46.3); Red Blood Cell Count 2.72 M/mm3 (4.30-5.90); White Blood Cell Count 9.19 K/mm3 (4.00-11.30)
[2021-03-17 04:21] LABS: EOSINOPHILS PERCENT AUTO 0 % (0-6); IMMATURE GRAN ABSOLUTE AUTO 0.44 K/mm3 (0.00-0.10); IMMATURE GRAN PERCENT AUTO 5 % (0-1); LYMPHOCYTES ABSOLUTE AUTO 0.59 K/mm3 (0.84-5.20); LYMPHOCYTES PERCENT AUTO 6 % (21-46); MONOCYTES ABSOLUTE AUTO 0.12 K/mm3 (0.16-1.47); MONOCYTES PERCENT AUTO 1 % (4-13); NEUTROPHILS ABSOLUTE AUTO 8.02 K/mm3 (1.96-9.15); NEUTROPHILS PERCENT AUTO 87 % (41-73)
[2021-03-17 04:33] LABS: Albumin, Blood 1.8 g/dL (3.4-5.0); Anion Gap 12 mmol/L (6-16); Blood Urea Nitrogen 85 mg/dL (8-24); Bun/Creatinine Ratio 16.1 (12.0-20.0); CO2, Blood 23 mmol/L (21-32); Calcium, Blood 7.1 mg/dL (8.5-10.1); Chloride, Blood 102 mmol/L (98-108); Creatinine, Blood 5.29 mg/dL (0.60-1.20); Glomerular Filtration Rate 12 (60-); Glucose, Blood 137 mg/dL (70-99); Magnesium, Blood 2.3 mg/dL (1.6-2.4); Phosphorus, Blood 6.5 mg/dL (2.5-4.9); Potassium, Blood 4.4 mmol/L (3.5-5.5); Sodium, Blood 137 mmol/L (136-145)
[2021-03-17 05:12] LABS: BAND PERCENT MAN 12 % (0-8); BASOPHILS PERCENT MAN 0 % (0-2); EOSINOPHILS PERCENT MAN 0 % (0-6); LYMPHOCYTES ABSOLUTE MAN 0.27 K/mm3 (0.84-5.20); LYMPHOCYTES PERCENT MAN 3 % (21-46); METAMYELOCYTE ABSOLUTE MAN 0.09 K/mm3 (0.00-0.00); METAMYELOCYTE PERCENT MAN 1 % (0-0); MONOCYTES PERCENT MAN 0 % (4-13); NEUTROPHILS ABSOLUTE MAN 8.82 K/mm3 (1.96-9.15); SEG NEUTROPHILS PERCENT MAN 84 % (41-73); TOTAL CELLS COUNTED 100
--- NOTE | 2021-03-17 06:46 | NUR ---
SHIFT SUMMARY PT DOES NOT TOLERATE REPOSITIONING OR DISTURBANCE IN ANY WAY. FOLLOWING REPLACEMENT OF ETT DUE TO CUFF FAILURE, PT'S SPO2 REMAINS IN THE 70'S AND LOW 80'S FOR OVER AN HOUR. NIMBEX IN RESTARTED AND SEDATION INCREASED. TO4 2/. CHEST TUBE TO WATER SEAL, NO CHANGE. DIALYSIS CATH IN R EJ DRESSING IS CHANGED. PT REQUIRES LEVOPHED FOR BP SUPPORT, NOW AT 5 MCG. VENT SETTINGS UNCHANGED AT AC 25, TV400, PEEP 25, FIO2 100%. ABD REMAINS VERY DISTENDED AND TIGHT. TF ON HOLD SINCE REPLACEMENT OF ETT. EXT EDEMATOUS, PULSES BY DOPPLER. 25ML OF URINE OUTPUT. WILL CONTINUE TO MONITOR AND REPORT TO ONCOMING SHIFT.
--- NOTE | 2021-03-17 08:50 | NUR ---
ASSESSMENT- PT SEDATED WITH VERSED GTT AT 6 MG/HR, PROPOFOL GTT AT 50 MCG/KG/MIN, PRECEDEX AT 1.4 MCG/KG/HR AND FENTANYL GTT AT 75 MCG/HR. NO S/S PAIN. PARALYZED WITH NIMBEX AT 2 MCG/KG/MIN TOF EYEBROW TWITCHES 4/4, NO OTHER MOVEMENT SEEN. ORALLY INTUBATED, TUBE SECURE, LUNGS WITH COARSE RHONCHI THROUGOUT EXCEPT VERY DIMINISHED RIGHT BASE. RIGHT ANTERIOR CHEST TUBE TO WATER SEAL, NO AIR LEAK NO FLUCUATIONS. HIGH PEEP 25, FIO2 100%, SATURATIONS 85-87%. APICAL REGULAR, BP STABLE. LEVOPHED GTT AT 5 MCG/MIN. LEFT ARM PICC LINE DI, NS TKO. RIGHT IJ DIALYSIS CATH DI. ABDOMEN LARGE, DISTENDED, FIRM, RARE BOWEL SOUNDS. TUBE FEEDING OFF. RESIDUAL 175 CC REPLACED. UO SCANT VIA COREA. RENAL FAILURE. ENHANCED PRECAUTIONS.
--- NOTE | 2021-03-17 09:48 | NUR ---
PT WITH STABLE BP-DECREASED LEVOPHED. DR. CABRERA HERE-ASSESSED PT.
--- NOTE | 2021-03-17 13:15 | NUR ---
TURNED FOR SUPPOSITORY, BATH. UNSTABLE, SATURATIONS DECREAED TO 77%. CHEST TUBE TO 20 CM WATER SUCTION, NO AIR LEAK NOTED. DR. CABRERA HERE-UDPATED. POOR PROGNOSIS. NOTIFIED PT'S DAD TO COME VISIT. MAXIMUM SUPPORT VENT
--- NOTE | 2021-03-17 16:34 | NUR ---
Spoke with Primary RN Kristin and Dr Mota. Discussed case, reviewed plan of care. Family changed Pt's code status to DNR and is aware of his prognosis. Pt resting in bed, sedated, and intubated. Pt's parents at bedside. Offered therapeutic listening as parents reminisce how Pt has a passion for cares. 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 Parents are tearful and this RN offered emotional support. Family expresses appreciation of visit. Palliative Care will remain available.
--- NOTE | 2021-03-17 16:41 | NUR ---
PT SEDATED BUT STILL WITH LOW SATURATIONS. TOLERATING VENT. UNRESPONSIVE. NIMBEX HAS BEEN OFF.
--- NOTE | 2021-03-17 17:29 | NUR ---
PT'S FAMILY HERE-UPDATED, EMOTIONAL SUPPORT GIVEN. PALLIATIVE CARE RN HERE. VS UNSTABLE, SATURATIONS REMAIN LOW, POSITIONED SUPINE. RESTRAINTS OFF.
--- NOTE | 2021-03-17 18:48 | NUR ---
DR CABRERA HERE-UPDATED. LABS D/C, TUBE FEEDING D/C. DNR STATUS. DO NOT CALL FOR ESCALATION OF CARES. SATURATIONS REMAIN HIGH 70-LOW 80'S. REPOSITIONED FOR COMFORT WITH HOB ELEVATED. UO POOR
[2021-03-18 04:36] LABS: Hemoglobin 7.5 g/dL (13.5-17.5)
[2021-03-18 04:54] LABS: Magnesium, Blood 2.1 mg/dL (1.6-2.4)
[2021-03-18 05:31] LABS: Albumin, Blood 1.6 g/dL (3.4-5.0); Anion Gap 13 mmol/L (6-16); Blood Urea Nitrogen 94 mg/dL (8-24); CO2, Blood 20 mmol/L (21-32); Chloride, Blood 99 mmol/L (98-108); Creatinine, Blood 5.87 mg/dL (0.60-1.20); Glomerular Filtration Rate 11 (60-); Glucose, Blood 147 mg/dL (70-99); Phosphorus, Blood 7.7 mg/dL (2.5-4.9); Potassium, Blood 4.8 mmol/L (3.5-5.5); Sodium, Blood 132 mmol/L (136-145)
--- NOTE | 2021-03-18 06:36 | NUR ---
END OF SHIFT SUMMARY: PATIENT HAS REMAINED INTUABTED/SEDATED WITH NO NIMBEX. DNR STATUS AND ACTIVELY DYING. REMAINS ON MAX SETTINGS ON THE VENT AT 100% AND 25 PEEP. NO FAMILY HAS CALLED OVERNIGHT. REMAINS SR/ST WITH A LABILE BP. LEVO ON AT 3 WITH NO ESCALATION OF CARE PLANNED. O2 SATS SLOWLY DECREASING FROM 80S TO LOW 70S. CRITICAL BUN AT 94. REMAINS UNRESTRATINED AND CONTINUES TO NOT FOLLOW COMMANDS OR WAKE UP TO NOXUIOS STIMULI
--- NOTE | 2021-03-18 08:15 | NUR ---
ASSESSMENT PT SEDATED WTIH PROPOFOL AT 50 MCG/KG/MIN, PRECEDEX AT 1.4 MCG/KG/HR, VERSED GTT AT 6 MG/HR AND FENTANYL MACHINE PACKAGING TECHNICIAN AT 75 MCG/HR. NO RESPONSE TO COMMANDS. ORALLY INTUBATED TUBE SECURE.TOLERATING VENT SETTINGS. NSR. LEVOPHED GTT FOR BP SUPPORT. PICC INTACT. NS TKO. DOBHOFF INTACT, CLAMPED. ABDOMEN LARGE, DISTENDED, FIRM. SCANT URINE OUTPUT. ANASARCA. RIGHT ANTERIOR CHEST TUBE TO WATER SEAL-NO AIR LEAK, NO CREPITUS
--- NOTE | 2021-03-18 09:30 | NUR ---
PT BRADYCARDIC TO ASYSTOLE. DR. CABRERA HERE. DNR STATUS. PT AT 912, NO APICAL PULSE, NO RESPIRATORY EFFORT. NOTIFIED PARENTS TO COME IN. HERE. TIME OF 912
--- NOTE | 2021-03-18 10:10 | NUR ---
PTS DAD HERE-SPOKE WITH ENTERPRISE ANALYST, DID NOT COME TO ICU. POST MORTEM CARE DONE.
--- NOTE | 2021-03-18 10:15 | NUR ---
Upon receiving a request for rn or lpn services shortly after the of the patient, I arrive at patient's . I learn of his and the news of the family coming in and that they are unaware that patient has . I meet patient's father, Shashank, at the [facility]. I provide the notification followed by words of comfort and prayer. Shashank responds well and shows signs of being comforted. I then make a follow up phone call to Shashank to uptain home information. Shashank states that they are researching the home and that he will call this rn or lpn once they decide. I will continue to remain available .
--- NOTE | 2021-03-18 12:06 | NUR ---
PT TO [facility] WITH BELONGINGS.
== END 2021-03-18 14:01 | DRG 853 ==
LOC: ER 01:51 → ICUE 04:40 → ERHOLD 04:40 → ICUE 08:37
PROVIDERS: Emergency Medicine; Family Medicine; Hospitalist; Internal Medicine Cardiovascular Disease; Internal Medicine Critical Care Medicine; Internal Medicine Gastroenterology; Internal Medicine Nephrology; Student in an Organized Health Care Education/Training Program; ADMIT Internal Medicine
PROC: 0BH18EZ Insertion of Endotracheal Airway into Trachea, Via Natural or Artificial Opening Endoscopic (ICD-10-PCS; principal; 2021-02-28)
PROC: 027034Z Dilation of Coronary Artery, One Artery with Drug-eluting Intraluminal Device, Percutaneous Approach (ICD-10-PCS; 2021-02-28)
PROC: 5A1955Z Respiratory Ventilation, Greater than 96 Consecutive Hours (ICD-10-PCS; 2021-02-28)
PROC: 3E0333Z Introduction of Anti-inflammatory into Peripheral Vein, Percutaneous Approach (ICD-10-PCS; 2021-02-28)
PROC: 8E0ZXY6 Isolation (ICD-10-PCS; 2021-02-28)
PROC: 5A09357 Assistance with Respiratory Ventilation, Less than 24 Consecutive Hours, Continuous Positive Airway Pressure (ICD-10-PCS; 2021-02-28)
PROC: 3E043XZ Introduction of Vasopressor into Central Vein, Percutaneous Approach (ICD-10-PCS; 2021-02-28)
PROC: 03HY32Z Insertion of Monitoring Device into Upper Artery, Percutaneous Approach (ICD-10-PCS; 2021-02-28)
PROC: 4A133B1 Monitoring of Arterial Pressure, Peripheral, Percutaneous Approach (ICD-10-PCS; 2021-02-28)
PROC: 4A133J1 Monitoring of Arterial Pulse, Peripheral, Percutaneous Approach (ICD-10-PCS; 2021-02-28)
PROC: 4A023N7 Measurement of Cardiac Sampling and Pressure, Left Heart, Percutaneous Approach (ICD-10-PCS; 2021-02-28)
PROC: B2111ZZ Fluoroscopy of Multiple Coronary Arteries using Low Osmolar Contrast (ICD-10-PCS; 2021-02-28)
PROC: 06HY33Z Insertion of Infusion Device into Lower Vein, Percutaneous Approach (ICD-10-PCS; 2021-02-28)
PROC: 0D968ZZ Drainage of Stomach, Via Natural or Artificial Opening Endoscopic (ICD-10-PCS; 2021-03-02)
PROC: XW033E5 Introduction of Remdesivir Anti-infective into Peripheral Vein, Percutaneous Approach, New Technology Group 5 (ICD-10-PCS; 2021-03-02)
PROC: 0DJ08ZZ Inspection of Upper Intestinal Tract, Via Natural or Artificial Opening Endoscopic (ICD-10-PCS; 2021-03-04)
PROC: 04L23DZ Occlusion of Gastric Artery with Intraluminal Device, Percutaneous Approach (ICD-10-PCS; 2021-03-05)
PROC: B41B1ZZ Fluoroscopy of Other Intra-Abdominal Arteries using Low Osmolar Contrast (ICD-10-PCS; 2021-03-05)
PROC: 0W9930Z Drainage of Right Pleural Cavity with Drainage Device, Percutaneous Approach (ICD-10-PCS; 2021-03-10)
PROC: 5A1D70Z Performance of Urinary Filtration, Intermittent, Less than 6 Hours Per Day (ICD-10-PCS; 2021-03-13)
PROC: 02HV33Z Insertion of Infusion Device into Superior Vena Cava, Percutaneous Approach (ICD-10-PCS; 2021-03-13)
PROC: 30233N1 Transfusion of Nonautologous Red Blood Cells into Peripheral Vein, Percutaneous Approach (ICD-10-PCS; 2021-03-15)
DX: A41.89 Other specified sepsis (principal); R65.21 Severe sepsis with septic shock; U07.1 COVID-19; J80 Acute respiratory distress syndrome; I21.09 ST elevation (STEMI) myocardial infarction involving other coronary artery of anterior wall; J12.82 Pneumonia due to coronavirus disease 2019; J81.0 Acute pulmonary edema; K72.00 Acute and subacute hepatic failure without coma; K25.4 Chronic or unspecified gastric ulcer with hemorrhage; J15.211 Pneumonia due to Methicillin susceptible Staphylococcus aureus; N17.0 Acute kidney failure with tubular necrosis; E87.2 Acidosis; E87.1 Hypo-osmolality and hyponatremia; J93.9 Pneumothorax, unspecified; D62 Acute posthemorrhagic anemia; G93.1 Anoxic brain damage, not elsewhere classified; Z66 Do not resuscitate; E66.9 Obesity, unspecified; I25.10 Atherosclerotic heart disease of native coronary artery without angina pectoris; Z60.2 Problems related to living alone; N18.9 Chronic kidney disease, unspecified; R16.0 Hepatomegaly, not elsewhere classified; R04.0 Epistaxis; T85.898A Other specified complication of other internal prosthetic devices, implants and grafts, initial encounter; E88.09 Other disorders of plasma-protein metabolism, not elsewhere classified; E87.6 Hypokalemia; R45.1 Restlessness and agitation; E83.51 Hypocalcemia; E87.70 Fluid overload, unspecified; E83.39 Other disorders of phosphorus metabolism; E83.42 Hypomagnesemia; R57.8 Other shock; E78.1 Pure hyperglyceridemia; Z68.38 Body mass index [BMI] 38.0-38.9, adult
CPT/HCPCS: 31500; 32551; 36247; 36415; 36430; 36556; 36569; 36600; 36620; 37244; 51702; 71045; 71260; 74018; 74174; 75726; 75774; 76770; 76937; 80047; 80048; 80053; 80069; 80074; 81050; 82150; 82330; 82465; 82550; 82553; 82803; 82947; 83605; 83690; 83735; 83880; 84100; 84145; 84156; 84478; 84484; 85014; 85018; 85025; 85347; 85610; 85730; 86317; 86850; 86900; 86901; 86920; 86923; 87070; 87077; 87186; 87205; 93005; 93010; 93306; 93308; 93321; 93458; 94002; 94003; 94640; 96365-59; 96366-59; 96375-59; 96376-59; 99152; 99153; 99291-25; 99292; A9270; C1725; C1751; C1752; C1760; C1769; C1874; C1887; C1894; C9113; C9600; C9606; J0171; J0360; J0610; J0690; J0881; J1100; J1430; J1644; J1940; J2060; J2250; J2370; J2704; J2765; J3010; J3246; J3475; J3480; J7030; J7040; J7050; J7060; J7070; J7120; P9016; P9041; P9046; Q9967; U0004